=== PATIENT | female | born 1985 | race Caucasian/White ===

== ENCOUNTER 2016-11-09 10:13 | Emergency (ER) | payer OTHER ==
[~2016-11-09] VITALS: Ht 152.4 cm; Wt 79.4 kg
[2016-11-09] MEDS ORDERED: prenatal PO (10:26)
[2016-11-09] MEDS ORDERED: diphenhydrAMINE INJ 50MG/ML VIAL (J1200) IV STA (11:25)
[2016-11-09] MEDS ORDERED: METOCLOPRAMIDE INJ 10MG/2ML VIAL (J2765) IV ONE (11:30)
[2016-11-09] MEDS ORDERED: NS 1,000 ML IV ONE (11:30)
[2016-11-09] MEDS ORDERED: METOCLOPRAMIDE 10 MG TAB PO ONE (12:45)
[2016-11-09] MEDS ORDERED: diphenhydrAMINE 25 MG CAP PO ONE (12:45)
--- NOTE | 2016-11-09 12:58 | REP ---
Emergency first trimester OB sonography: History: Vaginal bleeding. Findings: Transabdominal scanning confirms the presence of a viable single intrauterine gestation in a free-floating lie. The crown-rump length of the embryonic pole is 6.8 cm. This corresponds with a gestational age estimate of 13 weeks 0 days. heart rate is recorded at 165 beats per minute. No subchorionic hemorrhage is seen. No extrauterine abnormalities observed. The placenta is posterior with partial placenta previa at this juncture. Closed cervical length is 3.9 cm viewed transabdominally. Impression: Viable single intrauterine gestation at 13 weeks 0 days by crown-rump length. SHAY by sonography May 17, 2017. Partial placenta previa noted at this juncture. No subchorionic hemorrhage seen. Closed cervical length 3.9 cm. Signed by Abimael Pittman MD 11/09/2016 12:58 P
[2016-11-09 13:05] LABS: BASO % 0.2 % (0.0-1.0); EOS # 0.2 K/mm3 (0.0-0.50); EOS % 2.1 % (0.0-3.0); LARGE UNSTAINED CELL # 0.1 K/mm3 (0.0-0.4); LARGE UNSTAINED CELL % 1.5 % (0.0-4.0); LYMPH # 1.9 K/mm3 (1.5-4.5); LYMPH % 24.4 % (24.0-44.0); MEAN CORPUSCULAR HEMOGLOBIN 31.8 pg (27.0-33.0); MEAN CORPUSCULAR HGB CONC 34.2 g/dl (32.0-36.5); MEAN CORPUSCULAR VOLUME 93.2 fl (80.0-96.0); MONO # 0.2 K/mm3 (0.0-0.8); MONO % 3.1 % (0.0-5.0); NEUTROPHILS # 4.9 K/mm3 (1.8-7.7); NEUTROPHILS % 68.7 % (36.0-66.0); PLATELET COUNT, AUTOMATED 229 k/mm3 (150-450); RED CELL DISTRIBUTION WIDTH 13.3 % (11.5-14.5); WHITE BLOOD COUNT 7.2 K/mm3 (4.0-10.0)
[2016-11-09 13:52] LABS: ANION GAP 9 MEQ/L (8-16); BLOOD UREA NITROGEN 7 MG/DL (7-18); CALCIUM LEVEL 9.2 MG/DL (8.5-10.1); CARBON DIOXIDE LEVEL 23 MEQ/L (21-32); CHLORIDE LEVEL 105 MEQ/L (98-107); CREATININE FOR GFR 0.38 MG/DL (0.55-1.02); GLOMERULAR FILTRATION RATE > 60.0 (>60); GLUCOSE, FASTING 80 MG/DL (70-105); POTASSIUM SERUM 3.6 MEQ/L (3.5-5.1); SODIUM LEVEL 137 MEQ/L (136-145)
[2016-11-09] MEDS ORDERED: ZOFR4TAB3 PO (14:08)
[2016-11-09 14:25] VITALS: BP 115/58
[2016-11-09] MEDS ORDERED: ACETAMINOPHEN TAB 650MG DOSE (2X325MG) As Ordered ONE (14:28)
[2016-11-09] MEDS ORDERED: ACETAMINOPHEN TAB 650MG DOSE (2X325MG) PO ONE (14:30)
== END 2016-11-09 14:36 | disposition home or self-care (01) ==
LOC: M ED 10:13
DX: O44.01 Complete placenta previa NOS or without hemorrhage, first trimester (principal); O21.9 Vomiting of pregnancy, unspecified; O99.211 Obesity complicating pregnancy, first trimester; Z90.49 Acquired absence of other specified parts of digestive tract; Z79.899 Other long term (current) drug therapy; Z88.0 Allergy status to penicillin; Z88.8 Allergy status to other drugs, medicaments and biological substances; Z3A.13 13 weeks gestation of pregnancy

== ENCOUNTER 2016-11-16 06:50 | Emergency (ER) | payer OTHER ==
[~2016-11-16 06:50] MED LIST: ZOFR4TAB3 PO; prenatal PO
[2016-11-16] MEDS ORDERED: UNIS25TA2 PO (06:57)
[2016-11-16 08:35] VITALS: BP 119/79
--- NOTE | 2016-11-17 07:23 | REP ---
First trimester obstetric ultrasound, emergency room request for vaginal bleeding: Comparison is 11/09/2016. There is a single intrauterine gestation, as previously. position is variable. There is movement and cardiac activity. The heart rate is 162 beats per minute. The placenta is posterior and extends into the lower uterine segment and is at least a marginal previa or possibly a partial previa as previously. There is no subchorionic hematoma. Maternal adnexa and cul-de-sac are unremarkable. By today's measurements the gestational age is 14 weeks 4 days with an SHAY of 05/13/2017. By the prior ultrasound the gestational age is 13 weeks 2 days and by LMP 13 weeks 2 days. weight is 100 grams (0 pounds, 3 ounces). This is greater than 97th percentile for 13 weeks 2 days. Impression: Posterior placenta extending into the lower uterine segment. This is at least a marginal previa possibly a partial previa. This is similar to the prior study. The patient declined endovaginal imaging. I note there was no endovaginal ultrasound on the prior study. Because of the low lying placenta and possible partial previa, I recommend the patient have endovaginal Doppler ultrasound to evaluate for vasa previa. Signed by Ganesh Khan MD 11/16/2016 08:13 A
--- NOTE | 2016-11-17 15:07 | ED PDOC ---
Post-Departure Follow-Up radiology report faxed to Isabell Bain Sarah MD Nov 17, 2016 15:07
== END 2016-11-16 08:36 | disposition home or self-care (01) ==
LOC: M ED 06:50
DX: O20.0 Threatened abortion (principal); Z3A.14 14 weeks gestation of pregnancy; O99.212 Obesity complicating pregnancy, second trimester; O99.342 Other mental disorders complicating pregnancy, second trimester; Z87.59 Personal history of other complications of pregnancy, childbirth and the puerperium; Z88.8 Allergy status to other drugs, medicaments and biological substances; Z88.0 Allergy status to penicillin; Z88.1 Allergy status to other antibiotic agents

== ENCOUNTER 2016-12-13 15:12 | Emergency (ER) | payer OTHER ==
[~2016-12-13] VITALS: Ht 152.4 cm; Wt 78.8 kg
[~2016-12-13 15:12] MED LIST changes: +UNIS25TA2 PO
[2016-12-13] MEDS ORDERED: VITA50TA49 PO (15:19)
[2016-12-13] MEDS ORDERED: FOLI1TAB4 PO (15:19)
[2016-12-13] MEDS ORDERED: METOCLOPRAMIDE INJ 10MG/2ML VIAL (J2765) IV ONE (17:15)
[2016-12-13] MEDS ORDERED: NS 1,000 ML IV ONE (17:45)
[2016-12-13] MEDS ORDERED: ACETAMINOPHEN 325 MG TAB PO ONE (18:30)
[2016-12-13 19:35] VITALS: BP 121/63
== END 2016-12-13 19:41 | disposition home or self-care (01) ==
LOC: M ED 15:12
DX: G44.209 Tension-type headache, unspecified, not intractable (principal); Z90.49 Acquired absence of other specified parts of digestive tract; Z79.899 Other long term (current) drug therapy; Z88.0 Allergy status to penicillin; Z88.1 Allergy status to other antibiotic agents; Z88.8 Allergy status to other drugs, medicaments and biological substances; Z3A.18 18 weeks gestation of pregnancy
CPT/HCPCS: 81001; 96361; 96374; 99283; J2765

== ENCOUNTER 2017-03-30 10:31 | Outpatient (CLI) | payer OTHER ==
[~2017-03-30] VITALS: Ht 152.4 cm; Wt 81.8 kg
[2017-03-30] VITALS (10 sets, daily range): BP systolic 119–164; BP diastolic 58–78
[~2017-03-30 10:31] MED LIST changes: +FOLI1TAB4 PO; +VITA50TA49 PO
[2017-03-30] MEDS ORDERED: TUMS500C PO (11:13)
[2017-03-30] MEDS ORDERED: MAGN1TAB25 PO (11:13)
[2017-03-30] MEDS ORDERED: ZANTTAB PO (11:13)
[2017-03-30] MEDS ORDERED: BENA25TA10 PO (11:13)
[2017-03-30] MEDS ORDERED: VITA50TA43 PO (11:13)
[2017-03-30] MEDS ORDERED: ACET50TA PO (11:13)
[2017-03-30] MEDS ORDERED: ASPI81TA85 PO (11:13)
[2017-03-30 13:13] LABS: MEAN CORPUSCULAR HEMOGLOBIN 31.9 pg (27.0-33.0); MEAN CORPUSCULAR HGB CONC 33.5 g/dl (32.0-36.5); MEAN CORPUSCULAR VOLUME 95.1 fl (80.0-96.0); PLATELET COUNT, AUTOMATED 213 10^3/uL (150-450); WHITE BLOOD COUNT 10.3 10^3/uL (4.0-10.0)
[2017-03-30 13:26] LABS: INR 0.91
[2017-03-30 13:31] LABS: ALT/SGPT 94 U/L (12-78); AST/SGOT 39 U/L (7-37); BILIRUBIN,TOTAL 0.3 MG/DL (0.2-1.0); CREATININE FOR GFR 0.35 MG/DL (0.55-1.02); GLOMERULAR FILTRATION RATE > 60.0 (>60); URIC ACID 2.8 MG/DL (2.6-6.0)
[2017-03-30] MEDS ORDERED: MAALOX 30 ML SUSP *UDC PO PRN (13:45)
--- NOTE | 2017-03-30 16:21 | REP ---
Clinical: HELLP syndrome. Technique: Carreon scale ultrasound examination using curved array transducer. Findings: Liver demonstrates mild hepatomegaly without focal hepatic lesion. Visualized portions of the pancreas are unremarkable but limited due to interposed bowel gas. The patient is status post cholecystectomy and there is no biliary ductal dilatation. Common bile duct measures 3.8 mm diameter. The right kidney demonstrates mild hydronephrosis and measures 13.6 x 6.2 x 7.0 cm. No ascites. Intrauterine in cephalic presentation (FHR= 157bpm). Impression: Mild hepatomegaly. Mild hydronephrosis. Signed by Parker Lugo MD 03/30/2017 04:12 P
--- NOTE | 2017-03-31 03:00 | HPE ---
DATE OF ADMISSION: 03/30/2017 This lady is a 31-year-old 4, para 2, 1, last menstrual period (LMP) 08/09/2016, estimated date of confinement (EDC) 05/17/2017. She comes in for evaluation at 33 weeks 1 day with a history of some vaginal bleeding that filled a pad. No pain. She had a history of abdominal itchiness with no rash, which generated liver enzyme evaluation at the clinic yesterday. The laboratory evaluation yesterday showed the alkaline phosphatase at 122 which was normal, alanine aminotransferase of 121 which is elevated, AST at 67 which is elevated. Total bilirubin was normal and protein was 5.9 which was low. Her only symptomatology she says is right upper quadrant tenderness. She has had a previous cholecystectomy with significant adhesions, but she had a previous right upper quadrant pain when she had her history of eclampsia at a previous . Her risk factors are that she had a history of pre-eclampsia and eclampsia with seizures. She is a GDMA1, diet controlled, monitoring own blood sugars, seem to be normal. Her body mass index (BMI) is 34.1. She has medullary sponge kidney disease with proteinuria. She has a history of PPD, and was on Zoloft. She has had two previous sections and it is an IVF . On examination today, she does not appear to be in any distress. She has a category one strip. She has no evidence of bleeding. No evidence of vaginal loss. No evidence of uterine tenderness or irritability. There are good accelerations, no decelerations noted. Moderate variability 6-25 beats per minute. Her vital signs are throughout her stay her blood pressure is 124/75, respirations 18, pulse 105 and temperature 99.1. She had one episode of an elevated blood pressure which was 164/62 and this was the automated cuff, however. With the digital cuff, it seemed to be normal. The rest of the examination is unremarkable. She is normocephalic, atraumatic. Neck full range of motions. Pupils are equal and reactive to light. Distal pulses symmetric. No evidence of deep venous thrombosis (DVT), pulmonary embolus (PE) or superficial phlebitis. She has brisk reflexes bilaterally lower extremities. Upper extremities are normal. Palpation in the right upper quadrant radiates around to the back with significant deep palpation. Lungs are clear bilaterally to bases. No wheezes or rhonchi. Uterus is nontender. Four quadrant bowel sounds are noted. Incisional site is clean and dry and nontender. No rashes, lesions or pruritus. We could not demonstrate any issue with a rash and she said her pruritus was better. She has no arthralgia or myalgia. No complaints of cough, wheezes, shortness of breath or dyspnea on exertion. No chest pain. She is not bleeding. No headache. Neurologically complete. No deficits noted. No incontinency, urgency or frequency. No nausea, vomiting, diarrhea or constipation. As far as her diabetic issues, she is a GDMA1 on diet using monitoring strips, appeared to be normal. Her gynecologic history is unremarkable. Surgical history is two sections, one because of eclampsia and the other one was a trial of labor after section (TOLAC) which she failed to progress and ended up with a section. Family history is noncontributory. She does not smoke, drink, abuse drugs. 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 The evaluation on this patient was basically on threefold. One is is she pre-eclamptic, is she eclamptic or does she have hemolysis, elevated liver enzymes, and low platelets (HELLP) syndrome. We reviewed her complete blood count (CBC). Her hemoglobin 11.1, hematocrit 33.1 and platelets were 213. Her chemistry showed that her uric acid was 2.8 which is normal. Her ALT was 94, AST was 35, lower than her original one done yesterday. LDH was 167. Her PT/INR and PTT were within normal limits and her fibrinogen was elevated, but that is normal in for 875. Her protein creatinine ratio was 0.38, suggested a 24-hour urine which she was in the process of doing and her total protein was 497.2. We have no evaluation of her previous protein, although she has medullary sponge kidney. She had a liver ultrasound which showed minimal dilatation. No evidence of ductal dilatation. No evidence of gallbladder or stone. No evidence of hepatic lesion. Therefore our plan of management of this lady is that although she does not fulfill the criteria for pre-eclampsia or eclampsia or for HELLP syndrome, we are still consciously monitoring her for all three. We explained to her regarding kick chart, premature rupture of membranes, labor or vaginal bleeding, although she did not call us regarding her previous vaginal bleeding. We also counseled regarding a headache, right upper quadrant pain, spots before her eyes, decreased urinary output or seizure-like activity. 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 The rest of the plan of management is to have her come back in 48 hours to repeat the NST, repeat her blood work and evaluate her reflexes and see if there is necessity for imminent delivery at 33 and 5 weeks of gestation. The patient was counseled to call us if any symptomatology occurs and the patient was discharged undelivered.
== END 2017-03-30 16:52 | disposition home or self-care (01) ==
LOC: M LDO 10:31
PROVIDERS: ATTEND Obstetrics & Gynecology
DX: O26.853 Spotting complicating pregnancy, third trimester (principal); O99.89 Other specified diseases and conditions complicating pregnancy, childbirth and the puerperium; R16.0 Hepatomegaly, not elsewhere classified; N13.30 Unspecified hydronephrosis; R10.11 Right upper quadrant pain; O35.2XX1 Maternal care for (suspected) hereditary disease in fetus, fetus 1; O09.813 Supervision of pregnancy resulting from assisted reproductive technology, third trimester; Z3A.33 33 weeks gestation of pregnancy

== ENCOUNTER 2017-04-02 09:48 | Outpatient (CLI) | payer OTHER ==
[~2017-04-02] VITALS: Ht 152.4 cm; Wt 83.1 kg
[~2017-04-02 09:48] MED LIST changes: +ACET50TA PO; +ASPI81TA85 PO; +BENA25TA10 PO; +MAGN1TAB25 PO; +TUMS500C PO; +VITA50TA43 PO; +ZANTTAB PO
[2017-04-02 10:10] VITALS: BP 123/78
[2017-04-02 10:32] LABS: MEAN CORPUSCULAR HEMOGLOBIN 32.4 pg (27.0-33.0); MEAN CORPUSCULAR VOLUME 95.1 fl (80.0-96.0); PLATELET COUNT, AUTOMATED 206 10^3/uL (150-450); RED CELL DISTRIBUTION WIDTH 13.9 % (11.5-14.5); WHITE BLOOD COUNT 9.3 10^3/uL (4.0-10.0)
[2017-04-02 10:44] LABS: INR 0.95
[2017-04-02 10:55] LABS: ALBUMIN 2.1 GM/DL (3.2-5.2); ALBUMIN/GLOBULIN RATIO 0.49 (1.00-1.93); ALKALINE PHOSPHATASE 123 U/L (45-117); ALT/SGPT 58 U/L (12-78); AST/SGOT 25 U/L (7-37); BILIRUBIN,DIRECT < 0.1 MG/DL (0.0-0.2); BILIRUBIN,TOTAL 0.2 MG/DL (0.2-1.0); CREATININE FOR GFR 0.42 MG/DL (0.55-1.02); GLOMERULAR FILTRATION RATE > 60.0 (>60); TOTAL PROTEIN 6.4 GM/DL (6.4-8.2); URIC ACID 2.1 MG/DL (2.6-6.0)
[2017-04-02 11:07] VITALS: BP 118/69
[2017-04-02 11:33] VITALS: BP 131/77
[2017-04-02 12:33] VITALS: BP 109/68
--- NOTE | 2017-04-02 20:48 | HPE ---
DATE OF ADMISSION: 04/02/2017 This patient is a 31-year-old 4, para 2, abortia 1, LMP was 08/09/2016 but there is another area that says it was 08/15/2016, and her EDC has been consistently May 17, 2017. However, the patient insists that her IVF dating is different. Based on her EDC through the many ultrasounds where taking is May 17, 2017 and today she is 33 weeks and 4 days. She also had an ultrasound that is on 11/09/2016 that put her at 13 weeks which gives her an EDC of May 17, 2017. Because of the conflicting ultrasound reports, we are going to continue with the EDC of May 17, 2017. She originally came with one episode of vaginal bleeding which filled a pad. No pain on 03/30/2017 and she had on March 29 at itchiness over the abdominal striae area, which triggered liver enzymes. LABORATORY: Her risk factors is she has had a history of pre E and eclampsia. She has a GDMA1, diet controlled monitoring her own blood sugars. She is a BMI of 34.1. She has medullary sponge kidney disease with proteinuria. She has a history of depression and Zoloft, and she had two previous sections and this is an IVF . Today she is feeling well only issue was her headache which is 4 out of 10 which is similar to what she had before and over the last 24-48 hours. She does not complain of any visual disturbances, spots in her eyes, right upper quadrant pain, decreased urinary output, increased swelling or irritation or agitation. In looking in reviewing her lab work on 03/29/2017 done at another facility, her AST was 67 on March 29, 2017, on 03/30/2017 it was 39, and on 04/02/2017 it was 25. Her aminotransferase on 03/29/2017 was 121, on March 30 it was 94, and on April 02 it was 58. Her bilirubin on March 29 was 0.20 and that has been consistent on March 30 and April 02. Her total protein on March 29 was 5.9. Her uric acid 2.8 on March 30 2.8 and April 02 2.1. Her total protein on March 30 was 497.2 ,but her protein creatinine ratio was 0.38 on March 30. Her protein creatinine ratio elevated to 0.55. Her hemoglobin/hematocrit and platelet counts remained within normal variant range and there has been no wide swings in her platelets, the lowest being 206. Her liver ultrasound was normal. Her ultrasound showed an AMY 13.88, RI index of 0.64, AST ratio of 2.8. Cervix 4.0, large for gestational age at 34 weeks with a estimated weight of 26 59 grams in vertex presenting. On physical examination she is in no acute distress. Symphysis fundus height is 34, four quadrant bowel sounds are noted. Category one strip with no contractions, good accelerations moderate variability of 6-25 beats per minute. Her blood pressure is 109/68, pulse 104, temperature is 96.8 and respirations are 18. She is normocephalic, atraumatic. Neck: Full range of motions. Pupils equal and reactive to light. Her thyroid is midline. No JVD, bruits. Lungs are clear bilaterally to the bases. She has four quadrant bowel sounds. No evidence of gross edema. Slight ankle edema. Right upper quadrant is unremarkable. She has no rashes, lesions or pruritus. No arthralgia or myalgia. No complaints of cough, wheezes short since of breath or dyspnea on exertion. No chest pain. Not bleeding. Neuro complete. No incontinence, urgency or frequency. No nausea, vomiting, diarrhea or constipation. She is monitoring her blood sugars, which are all within normal range and she is diet controlled. She does not smoke, drink, abuse drugs. 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 She has multiple allergies to antibiotics. At the present time it is not an issue as she is not booked for elective repeat and that yardstick will be moved. The triad of hemolysis, elevated liver enzymes and low platelets which is the HELLP is associated with increased risk of maternal mortality and severe morbidity. However, in reviewing this lady and factors which increased the risk, her AST has to be greater than 316, her ALT greater than 217, her total bilirubin greater than 2.0 and her LDH greater than 1290. Her BUN is greater 244, and her platelet counts less than 50,000. At the present time she does not meet the criteria for HELLP syndrome or for preeclampsia or eclampsia. However, progression can be and potentially be sudden and catastrophic and this was emphasized to the patient when we did our precautions, and she has had eclamptic seizures before, so she knows the signs and symptoms. We evaluated her liver which appeared to be normal and therefore there was some low risk of rupture of the liver. Her lungs are clear which is a low risk of pulmonary edema and at the present time we are doing expected management hopefully getting this lady's at 37 weeks at which time an elective repeat section will be entertained. The patient and understand the risks and benefits, complications and expressed understanding of when to call the physician. We spent almost 2 hours in assessment of this patient with multiple questions answered and satisfied and the patient was discharged to followup in 48 hours for reevaluation.
[2017-04-03] MEDS ORDERED: MYLA1SUS PO (16:54)
== END 2017-04-02 12:35 | disposition home or self-care (01) ==
LOC: M LDO 09:48
PROVIDERS: ATTEND Obstetrics & Gynecology
DX: O99.89 Other specified diseases and conditions complicating pregnancy, childbirth and the puerperium (principal); R51 Headache; O26.893 Other specified pregnancy related conditions, third trimester; R16.0 Hepatomegaly, not elsewhere classified; O26.833 Pregnancy related renal disease, third trimester; N13.2 Hydronephrosis with renal and ureteral calculous obstruction; Z87.59 Personal history of other complications of pregnancy, childbirth and the puerperium; O09.813 Supervision of pregnancy resulting from assisted reproductive technology, third trimester; Z3A.33 33 weeks gestation of pregnancy

== ENCOUNTER 2017-04-03 15:42 | Outpatient (CLI) | payer OTHER ==
[~2017-04-03] VITALS: Ht 152.4 cm; Wt 82.1 kg
[2017-04-03] VITALS (7 sets, daily range): BP systolic 99–122; BP diastolic 56–71
[2017-04-03 16:28] LABS: MEAN CORPUSCULAR HGB CONC 33.8 g/dl (32.0-36.5); MEAN CORPUSCULAR VOLUME 94.6 fl (80.0-96.0); PLATELET COUNT, AUTOMATED 222 10^3/uL (150-450); RED CELL DISTRIBUTION WIDTH 13.8 % (11.5-14.5); WHITE BLOOD COUNT 10.6 10^3/uL (4.0-10.0)
[2017-04-03] MEDS ORDERED: PROMETHAZINE 25 MG TAB PO ONE (16:45)
[2017-04-03] MEDS ORDERED: FIORICET TAB PO ONE (16:45)
[2017-04-03 16:47] LABS: INR 1.02
[2017-04-03] MEDS ORDERED: MYLA1SUS PO (16:54)
--- NOTE | 2017-04-03 17:10 | IPNPDOC ---
Text Note Date of Service The patient was seen on 04/03/17. NOTE [id number] @ 1647 31 yo presents to L&D via wheelchair @ 34+1 by IVF dating with an SHAY- [id number] with c/o RENDON rated as a 6/10 and n/v. Denies DFM, LOF, CTX and VB. Reports a hx of migraines with n/v. She just came from [place] where she had her younger child d/t n/v/d(diagnosed with a virus). States that the babe is moving very aggressively today which is not the normal. She would like her IV in her left arm. Stated "it will be easier to hold my baby with the IV in the left arm". Reports concerns that she has eclampsia again. S: resting in bed in high-fowlers. States she thinks she will be able to sleep if the lights are dimmed. O: VS- BP-108/58, HR-105, T-99.8, R-20 FHR-140, moderate variability, + accels, no decles CTX- none, Resting tone palpated as soft +1 non-pitting bilat LE edema, +1 DTRs, no clonus PROBLEM LIST: 1. Hx C-S x 2- desires RLTCS 2. hx eclampsia 3. GDMA1-likely pre-existing 4. medullary sponge kidney-proteinuria 5. hx PTB @ 36 wks d/t eclampsia 6. hx PPD, depression and anxiety in this -prozac and buspar @ 26 wks 7. palpitations-cardioloy no recommendations 8. hx child with spina bifida-extra folate A: 31 yo @ 34+1 with reactive NST. No elevated BPs noted. No CTXs. Nausea resolved. RENDON 2/10 P: Discharge home with strict return precautions. PTL and pre-e precautions reviewed. f/u in clinic on Sunday or sooner if needed for DFM, CTX, LOF, VB, RENDON , n/v, visual changes and RUQ pain VS,Fishbone, I+O VS, Fishbone, I+O Laboratory Tests 04/03/17 16:16 Red Blood Count 3.69 L, Mean Corpuscular Volume 94.6, Mean Corpuscular Hemoglobin 32.0, Mean Corpuscular Hemoglobin Concent 33.8, Red Cell Distribution Width 13.8 AJ PRICE CNM Apr 03, 2017 17:10
[2017-04-03 17:46] LABS: ALBUMIN 2.4 GM/DL (3.2-5.2); ALBUMIN/GLOBULIN RATIO 0.67 (1.00-1.93); ALKALINE PHOSPHATASE 140 U/L (45-117); ALT/SGPT 52 U/L (12-78); ANION GAP 13 MEQ/L (8-16); AST/SGOT 22 U/L (7-37); BILIRUBIN,TOTAL 0.2 MG/DL (0.2-1.0); BLOOD UREA NITROGEN 6 MG/DL (7-18); CALCIUM LEVEL 8.9 MG/DL (8.5-10.1); CARBON DIOXIDE LEVEL 19 MEQ/L (21-32); CHLORIDE LEVEL 107 MEQ/L (98-107); CREATININE FOR GFR 0.36 MG/DL (0.55-1.02); GLOMERULAR FILTRATION RATE > 60.0 (>60); GLUCOSE, FASTING 109 MG/DL (70-105); POTASSIUM SERUM 3.8 MEQ/L (3.5-5.1); SODIUM LEVEL 139 MEQ/L (136-145); URIC ACID 2.3 MG/DL (2.6-6.0)
== END 2017-04-03 18:20 | disposition home or self-care (01) ==
LOC: M LDO 15:42
PROVIDERS: ATTEND Midwife
DX: O99.89 Other specified diseases and conditions complicating pregnancy, childbirth and the puerperium (principal); R51 Headache; Z87.59 Personal history of other complications of pregnancy, childbirth and the puerperium; Z3A.34 34 weeks gestation of pregnancy

== ENCOUNTER 2017-04-06 09:58 | Outpatient (CLI) | payer OTHER ==
[~2017-04-06 09:58] MED LIST changes: +MYLA1SUS PO
[2017-04-06 10:12] VITALS: BP 117/69
[2017-04-06 11:30] LABS: MEAN CORPUSCULAR HEMOGLOBIN 31.5 pg (27.0-33.0); MEAN CORPUSCULAR HGB CONC 33.1 g/dl (32.0-36.5); MEAN CORPUSCULAR VOLUME 95.2 fl (80.0-96.0); PLATELET COUNT, AUTOMATED 211 10^3/uL (150-450); RED CELL DISTRIBUTION WIDTH 13.5 % (11.5-14.5); WHITE BLOOD COUNT 9.7 10^3/uL (4.0-10.0)
[2017-04-06 11:55] LABS: ALBUMIN 2.3 GM/DL (3.2-5.2); ALBUMIN/GLOBULIN RATIO 0.66 (1.00-1.93); ALKALINE PHOSPHATASE 122 U/L (45-117); ALT/SGPT 34 U/L (12-78); ANION GAP 12 MEQ/L (8-16); AST/SGOT 17 U/L (7-37); BILIRUBIN,TOTAL 0.2 MG/DL (0.2-1.0); BLOOD UREA NITROGEN 7 MG/DL (7-18); CALCIUM LEVEL 8.5 MG/DL (8.5-10.1); CARBON DIOXIDE LEVEL 21 MEQ/L (21-32); CHLORIDE LEVEL 105 MEQ/L (98-107); CREATININE FOR GFR 0.34 MG/DL (0.55-1.02); GLOMERULAR FILTRATION RATE > 60.0 (>60); GLUCOSE, FASTING 127 MG/DL (70-105); POTASSIUM SERUM 3.7 MEQ/L (3.5-5.1); SODIUM LEVEL 138 MEQ/L (136-145); TOTAL PROTEIN 5.8 GM/DL (6.4-8.2)
--- NOTE | 2017-04-06 12:44 | IPNPDOC ---
Text Note Date of Service The patient was seen on 04/06/17. NOTE Yesenia is a 31yo with SIUP at 34wk gestation presenting to L&D for RUQ pain. She was previously seen to have isolated elevated LFTs and was given strict return precautions which she followed. She notes she took a dose of tylenol for the pain with some improvement. No obstetric concerns- rare ctx, no LOF, no VB, good movement. History significant for: 1)2 prior sections 2)hx of eclampsia with one of her pregnancies at 36wk delivered via 3)Medullary sponge kidney with associated proteinuria 4)Obesity 5)GDM 6)Palpitations s/p cardiology workup 7)Depression/anxiety on buspar and prozac 8)child with spina bifida 9)current via IVF 10)allergy to PCN (anaphylaxis) Vitals wnl- normotensive General: WDWN, resting comfortably in bed Abdomen: soft, ND, gravid, no pain with manipulation of uterus, no rebound/ guarding, NTTP SCE (chaperoned by RN): 1/thick/high Cat I FHRT, +accels, -decels, mod yen [place]: rare ctx Labs: CMP: creatinine 0.34, AST 17, ALT 34 CBC: H/H 11.2/33.8, plt 211 Assessment: Yesenia is a 31yo with SIUP at 34wk with above noted problem list with now resolved LFTs and NO evidence of pre-eclampsia or liver pathology. RUQ pain possibly related to ligament pain vs pain with movement since patient endorsed that her "baby is hurting her" whenever the baby moves. Reassuring status. No evidence of PTL. Plan: -confirmed with Dr. Carr to keep today's 1400 appt to schedule RLTCS -continue to hydrate well -return precautions discussed MD Karlos Cruz VS,Micheal, I+O VS, Micheal, I+O Laboratory Tests 04/06/17 11:17 Red Blood Count 3.55 L, Mean Corpuscular Volume 95.2, Mean Corpuscular Hemoglobin 31.5, Mean Corpuscular Hemoglobin Concent 33.1, Red Cell Distribution Width 13.5, Calcium Level 8.5, Aspartate Amino Transf (AST/SGOT) 17 , Alanine Aminotransferase (ALT/SGPT) 34, Alkaline Phosphatase 122 H, Total Bilirubin 0.2, Total Protein 5.8 L, Albumin 2.3 L Tatum Bella MD Apr 06, 2017 12:44
== END 2017-04-06 12:37 | disposition home or self-care (01) ==
LOC: M LDO 09:58
PROVIDERS: ATTEND Obstetrics & Gynecology
DX: O99.89 Other specified diseases and conditions complicating pregnancy, childbirth and the puerperium (principal); R10.11 Right upper quadrant pain; O09.93 Supervision of high risk pregnancy, unspecified, third trimester; O09.819 Supervision of pregnancy resulting from assisted reproductive technology, unspecified trimester; O99.343 Other mental disorders complicating pregnancy, third trimester; F32.9 Major depressive disorder, single episode, unspecified; F41.9 Anxiety disorder, unspecified; O26.833 Pregnancy related renal disease, third trimester; Z82.79 Family history of other congenital malformations, deformations and chromosomal abnormalities; Z3A.34 34 weeks gestation of pregnancy

== ENCOUNTER 2017-04-24 13:30 | Inpatient (IN) | payer OTHER ==
[2017-04-24 14:57] LABS: BASO % 0.2 % (0.0-1.0); EOS # 0.1 10^3/uL (0.0-0.50); EOS % 1.5 % (0.0-3.0); IMMATURE GRANULOCYTE # 0.1 10^3/uL (0-0); IMMATURE GRANULOCYTE % 1.1 % (0-0); LYMPH # 1.5 10^3/uL (1.5-4.5); LYMPH % 17.7 % (24.0-44.0); MEAN CORPUSCULAR HEMOGLOBIN 30.4 pg (27.0-33.0); MEAN CORPUSCULAR HGB CONC 33.3 g/dl (32.0-36.5); MEAN CORPUSCULAR VOLUME 91.2 fl (80.0-96.0); MONO # 0.6 10^3/uL (0.0-0.8); MONO % 6.8 % (0.0-5.0); NEUTROPHILS # 6.2 10^3/uL (1.8-7.7); NEUTROPHILS % 72.7 % (36.0-66.0); PLATELET COUNT, AUTOMATED 181 10^3/uL (150-450); RED CELL DISTRIBUTION WIDTH 13.2 % (11.5-14.5); WHITE BLOOD COUNT 8.5 10^3/uL (4.0-10.0)
[2017-04-24 15:24] LABS: ALBUMIN 2.2 GM/DL (3.2-5.2); ALBUMIN/GLOBULIN RATIO 0.63 (1.00-1.93); ALKALINE PHOSPHATASE 135 U/L (45-117); ALT/SGPT 22 U/L (12-78); ANION GAP 9 MEQ/L (8-16); AST/SGOT 20 U/L (7-37); BILIRUBIN,DIRECT < 0.1 MG/DL (0.0-0.2); BILIRUBIN,TOTAL 0.2 MG/DL (0.2-1.0); BLOOD UREA NITROGEN 7 MG/DL (7-18); CALCIUM LEVEL 8.1 MG/DL (8.5-10.1); CARBON DIOXIDE LEVEL 22 MEQ/L (21-32); CHLORIDE LEVEL 107 MEQ/L (98-107); CREATININE FOR GFR 0.36 MG/DL (0.55-1.02); GLOMERULAR FILTRATION RATE > 60.0 (>60); GLUCOSE, FASTING 116 MG/DL (70-105); POTASSIUM SERUM 4.1 MEQ/L (3.5-5.1); SODIUM LEVEL 138 MEQ/L (136-145); TOTAL PROTEIN 5.7 GM/DL (6.4-8.2); URIC ACID 2.8 MG/DL (2.6-6.0)
[2017-04-24] MEDS ORDERED: OXYTOCIN INJ 10 UNITS/ML VIAL (J2590) As Ordered ×3 (16:29→18:39)
[2017-04-24] MEDS ORDERED: MORPHINE PRES-FREE INJ 10 MG/10 ML VIAL (J2274) As Ordered (16:29)
[2017-04-24] MEDS: ACETAMINOPHEN 650 MG SUPP PR (17:00)
[2017-04-24] MEDS: BUPIVACAINE HCL 0.25% 10 ML VIAL XX (17:00)
[2017-04-24] MEDS: VANCOMYCIN HCL 1,000 MG, VIAL MATE ADAPTER 1 EACH in D5W 250 ML IV (17:10)
[2017-04-24] MEDS: LACTATED RINGER'S 1000 ML IV (17:10)
[2017-04-24] MEDS: BICITRA 30ML SOLN UDC PO (18:19)
[2017-04-24] MEDS ORDERED: ONDANSETRON 4MG/2ML VIAL (J2405) IV ×2 (18:31→20:00)
[2017-04-24] MEDS ORDERED: METOCLOPRAMIDE INJ 10MG/2ML VIAL (J2765) IV (18:31)
[2017-04-24] MEDS ORDERED: NALBUPHINE HCL 10 MG/ML AMP (J2300) IV ×3 (18:31→20:30)
[2017-04-24] MEDS ORDERED: NALOXONE INJ 0.4 MG/1 ML VIAL (J2310) IV ×2 (18:31)
[2017-04-24] MEDS ORDERED: ONDANSETRON 4MG/2ML VIAL (J2405) As Ordered (18:39)
[2017-04-24] MEDS ORDERED: KETOROLAC 60 MG/2 ML VIAL (J1885) As Ordered (19:05)
[2017-04-24] MEDS ORDERED: PHENYLephrine HCL 500 MCG/5 ML (100MCG/ML) SYRINGE (J2370) As Ordered (19:18)
[2017-04-24 19:21] LABS: CORD GAS ABE A 0.7; CORD GAS ABE V -1.1; CORD GAS HCO3 A 27.5 MEQ/L; CORD GAS HCO3 V 24.4 MEQ/L; CORD GAS O2 SAT V 81.5 %; CORD GAS PCO2 A 51.7 mmHg; CORD GAS PCO2 V 43.3 mmHg; CORD GAS PH A 7.344 UNITS; CORD GAS PH V 7.368 UNITS; CORD GAS PO2 A 29.2 mmHg; CORD GAS PO2 V 35.8 mmHg; CORD GAS SBC A 24.2 MEQ/L; CORD GAS SBC V 23.1 MEQ/L; CORD GAS TCO2 A 29.1 MEQ/L; CORD GAS TCO2 V 25.7 MEQ/L
[2017-04-24] MEDS ORDERED: fentaNYL 100 MCG/2 ML INJECTION (J3010) As Ordered (19:47)
[2017-04-24] MEDS ORDERED: OXYTOCIN DRIP 30 UNITS in APPROPRIATE DILUENT 1 EA IV (19:49)
[2017-04-24] MEDS ORDERED: DOCUSATE SODIUM 100 MG CAP PO (20:00)
[2017-04-24] MEDS ORDERED: ANUSOL HC CREAM 30GM TOP (20:00)
[2017-04-24] MEDS ORDERED: MEASLES,MUMPS,RUBELLA VACCINE INJ (MMR-II) (90707) SC (20:00)
[2017-04-24] MEDS ORDERED: fentaNYL 100 MCG/2 ML INJECTION (J3010) IV (20:00)
[2017-04-24] MEDS ORDERED: MOM 30ML SUSPENSION UDC PO (20:00)
[2017-04-24] MEDS ORDERED: MEPERIDINE INJ 25 MG/ML VIAL (J2175) IV (20:00)
[2017-04-24] MEDS: OXYTOCIN INJ 10 UNITS/ML VIAL (J2590) IV (20:00)
[2017-04-24] MEDS ORDERED: RHOGAM 300 MCG (1500 IU) INJ (J2790) IM (20:00)
[2017-04-24] MEDS ORDERED: METHYLERGONOVINE MALEATE 0.2 MG TAB PO (20:00)
[2017-04-24] MEDS ORDERED: MORPHINE 10 MG/ML 1ML VIAL As Ordered (20:39)
[2017-04-24] MEDS ORDERED: MORPHINE 2 MG/ML 1ML SYRINGE IV (20:45)
[2017-04-24] MEDS: LR 1,000 ML IV (20:56)
[2017-04-24] MEDS: busPIRone 5 MG TAB PO (21:00)
[2017-04-24 21:27] LABS: HBSAG L&D NEGATIVE (NEGATIVE)
[2017-04-24] MEDS: PERCOCET 5MG/325MG TAB PO (21:27)
[2017-04-24] MEDS: diphenhydrAMINE INJ 50MG/ML VIAL (J1200) IV (22:45)
[2017-04-25] MEDS: LR 1,000 ML IV ×3 (01:00→17:00)
[2017-04-25] MEDS: IBUPROFEN 800 MG TAB PO ×3 (02:11→17:56)
[2017-04-25 06:47] LABS: MEAN CORPUSCULAR HEMOGLOBIN 29.9 pg (27.0-33.0); MEAN CORPUSCULAR HGB CONC 32.8 g/dl (32.0-36.5); MEAN CORPUSCULAR VOLUME 91.2 fl (80.0-96.0); PLATELET COUNT, AUTOMATED 157 10^3/uL (150-450); RED CELL DISTRIBUTION WIDTH 13.3 % (11.5-14.5); WHITE BLOOD COUNT 12.2 10^3/uL (4.0-10.0)
[2017-04-25] MEDS: raNITIdine SYRUP 150 MG/10 ML UDC PO (07:50)
[2017-04-25] MEDS: PRENATAL VITAMINS CHEWABLE TABLET PO (07:50)
[2017-04-25] MEDS: MAGNESIUM OXIDE 400 MG TAB (MAG-OX) PO (07:51)
[2017-04-25] MEDS: FLUoxetine 20 MG CAP PO (07:51)
[2017-04-25] MEDS: busPIRone 5 MG TAB PO ×2 (07:51→21:24)
[2017-04-26] MEDS: IBUPROFEN 800 MG TAB PO ×2 (02:53→11:55)
[2017-04-26] MEDS: PERCOCET 5MG/325MG TAB PO ×4 (02:55→21:07)
[2017-04-26] MEDS: FLUoxetine 20 MG CAP PO (09:51)
[2017-04-26] MEDS: PRENATAL VITAMINS CHEWABLE TABLET PO (09:51)
[2017-04-26] MEDS: raNITIdine SYRUP 150 MG/10 ML UDC PO (09:51)
[2017-04-26] MEDS: MAGNESIUM OXIDE 400 MG TAB (MAG-OX) PO (09:51)
[2017-04-26] MEDS: busPIRone 5 MG TAB PO ×2 (09:51→20:58)
[2017-04-27] MEDS: PERCOCET 5MG/325MG TAB PO ×3 (01:36→09:47)
[2017-04-27] MEDS: busPIRone 5 MG TAB PO (08:47)
[2017-04-27] MEDS: MAGNESIUM OXIDE 400 MG TAB (MAG-OX) PO (08:47)
[2017-04-27] MEDS: raNITIdine SYRUP 150 MG/10 ML UDC PO (08:48)
[2017-04-27] MEDS: FLUoxetine 20 MG CAP PO (08:48)
[2017-04-27] MEDS: PRENATAL VITAMINS CHEWABLE TABLET PO (08:48)
== END 2017-04-27 12:45 | disposition home or self-care (01) | DRG 765 ==
LOC: M LDO 13:30 → M LDI 15:44 → M OBS 21:46
PROC: 10D00Z1 Extraction of Products of Conception, Low, Open Approach (ICD-10-PCS; principal; 2017-04-24)
DX: O14.94 Unspecified pre-eclampsia, complicating childbirth (principal); O40.3XX0 Polyhydramnios, third trimester, not applicable or unspecified; O24.420 Gestational diabetes mellitus in childbirth, diet controlled; O99.214 Obesity complicating childbirth; O34.211 Maternal care for low transverse scar from previous cesarean delivery; E66.9 Obesity, unspecified; O99.344 Other mental disorders complicating childbirth; F32.9 Major depressive disorder, single episode, unspecified; F41.9 Anxiety disorder, unspecified; Z3A.36 36 weeks gestation of pregnancy; Z37.0 Single live birth; Z68.34 Body mass index [BMI] 34.0-34.9, adult

== ENCOUNTER 2017-04-28 17:43 | Outpatient (CLI) | payer OTHER ==
[2017-04-28 18:10] LABS: BASO % 0.3 % (0.0-1.0); EOS # 0.3 10^3/uL (0.0-0.50); IMMATURE GRANULOCYTE # 0.1 10^3/uL (0-0); IMMATURE GRANULOCYTE % 0.9 % (0-0); LYMPH # 1.6 10^3/uL (1.5-4.5); LYMPH % 17.9 % (24.0-44.0); MEAN CORPUSCULAR HEMOGLOBIN 30.4 pg (27.0-33.0); MEAN CORPUSCULAR HGB CONC 33.1 g/dl (32.0-36.5); MEAN CORPUSCULAR VOLUME 91.6 fl (80.0-96.0); MONO # 0.6 10^3/uL (0.0-0.8); MONO % 6.3 % (0.0-5.0); NEUTROPHILS # 6.3 10^3/uL (1.8-7.7); NEUTROPHILS % 71.6 % (36.0-66.0); PLATELET COUNT, AUTOMATED 249 10^3/uL (150-450); RED CELL DISTRIBUTION WIDTH 13.6 % (11.5-14.5); WHITE BLOOD COUNT 8.8 10^3/uL (4.0-10.0)
== END 2017-04-28 18:54 | disposition home or self-care (01) ==
LOC: M LDO 17:43
DX: O99.89 Other specified diseases and conditions complicating pregnancy, childbirth and the puerperium (principal); R10.9 Unspecified abdominal pain; O99.53 Diseases of the respiratory system complicating the puerperium; O99.345 Other mental disorders complicating the puerperium; O99.215 Obesity complicating the puerperium; J00 Acute nasopharyngitis [common cold]; Z88.0 Allergy status to penicillin; Z88.8 Allergy status to other drugs, medicaments and biological substances
CPT/HCPCS: 85025

== ENCOUNTER → 2017-05-28 | Outpatient (CLI) | payer OTHER | LOC: M WUC 14:34 | DX: M25.551 Pain in right hip (principal) | CPT/HCPCS: 73502 ==

== ENCOUNTER 2017-10-21 18:13 | Emergency (ER) | payer OTHER ==
[2017-10-21] MEDS: NORCO 5/325MG TABLET (BULK FOR ED) PO (19:45)
== END 2017-10-21 21:18 | disposition home or self-care (01) ==
LOC: M ED 18:13
DX: S62.366A Nondisplaced fracture of neck of fifth metacarpal bone, right hand, initial encounter for closed fracture (principal); W22.8XXA Striking against or struck by other objects, initial encounter; Y92.009 Unspecified place in unspecified non-institutional (private) residence as the place of occurrence of the external cause; Z88.0 Allergy status to penicillin; Z88.8 Allergy status to other drugs, medicaments and biological substances
CPT/HCPCS: 73130

== ENCOUNTER 2018-06-24 10:17 | Day surgery (SDC) | payer OTHER ==
[~2018-06-24] VITALS: Ht 152.4 cm; Wt 80.3 kg
[~2018-06-24 10:17] MED LIST changes: -ACET50TA PO; +BUSP10TA PO; +BUSP5TA PO; +COLA100C5 PO; +FLUO20CA19 PO; +FOLI1TAB11 PO; -FOLI1TAB4 PO; +MAPA500T2 PO; +NORCOTAB PO; +NS 1,000 ML IV ONE; +OXYC1TAB23 PO; +PRENTAB9 PO; +PROZ20CA11 PO; -UNIS25TA2 PO; +UNIS25TA3 PO; +ZOFR4TAB14 PO; -ZOFR4TAB3 PO
[2018-06-24] MEDS ORDERED: PROPOFOL 200 MG/20 ML VIAL As Ordered ONE ×2 (11:04→13:20)
[2018-06-24] MEDS ORDERED: LIDOCAINE 2% INJ 100 MG/5 ML SDV (FOR ANES.) As Ordered ONE (11:05)
--- NOTE | 2018-06-24 13:20 | ROOR ---
Patient Name: Yesenia Thrasher Procedure Date: 06/24/2018 1:00 PM Date of : 1985 Age: 32 Room: [facility] Gender: Female Note Status: Finalized Procedure: Total Colonoscopy to Cecum Indications: Rectal bleeding Providers: Macario Baeza MD Referring MD: MATHIEU MURDOCK MD Requesting Provider: Medicines: Monitored Anesthesia Care Complications: No immediate complications. Procedure: Pre-Anesthesia Assessment: - The heart rate, respiratory rate, oxygen saturations, blood pressure, adequacy of pulmonary ventilation, and response to care were monitored throughout the procedure. The Colonoscope was introduced through the anus and advanced to the cecum, identified by appendiceal orifice and ileocecal valve. The colonoscopy was performed without difficulty. The patient tolerated the procedure well. The quality of the bowel preparation was excellent. Findings: The perianal and digital rectal examinations were normal. Non-bleeding internal hemorrhoids were found during retroflexion. The hemorrhoids were small and Grade I (internal hemorrhoids that do not prolapse). No other significant abnormalities were identified in a careful examination of the remainder of the colon. The exam was otherwise without abnormality on direct and retroflexion views. Impression: - Non-bleeding internal hemorrhoids. - The examination was otherwise normal on direct and retroflexion views. - No specimens collected. - The exam was otherwise normal to the cecum. Recommendation: - Patient has a contact number available for emergencies. The signs and symptoms of potential delayed complications were discussed with the patient. Return to normal activities tomorrow. Written discharge instructions were provided to the patient. - High fiber diet. - Discharge patient to home. - Continue present medications. - Repeat colonoscopy at age 49 for screening purposes. - Return to referring physician. - The findings and recommendations were discussed with the patient's family. Macario Baeza MD Macario Baeza MD 06/24/2018 1:20:17 PM This report has been signed electronically. Number of Addenda: 0 Note Initiated On: 06/24/2018 1:00 PM Estimated Blood Loss: Estimated blood loss: none.
[2018-06-24] MEDS ORDERED: ONDANSETRON 4MG/2ML VIAL (J2405) As Ordered ONE (13:41)
[2018-06-24 13:54] VITALS: BP 110/78
[2018-06-24] MEDS ORDERED: ONDANSETRON 4MG/2ML VIAL (J2405) IV ONE (14:00)
== END 2018-06-24 14:05 | disposition home or self-care (01) ==
LOC: M OPP 10:17
PROVIDERS: ATTEND Internal Medicine Gastroenterology
DX: K62.5 Hemorrhage of anus and rectum (principal); K64.0 First degree hemorrhoids; Z88.0 Allergy status to penicillin; Z88.1 Allergy status to other antibiotic agents; Z88.8 Allergy status to other drugs, medicaments and biological substances; Z79.899 Other long term (current) drug therapy

== ENCOUNTER → 2018-09-03 | Outpatient (CLI) | payer OTHER ==
[~2018-09-03] MED LIST changes: +HYDR-3715 PO; -MAGN1TAB25 PO; +MAGN1TAB26 PO; -NORCOTAB PO; -NS 1,000 ML IV ONE; -VITA50TA49 PO; +VITA50TA7 PO
--- NOTE | 2018-09-04 09:45 | REP ---
ULTRASOUND LEFT BREAST: Real-time sonographic evaluation of the left breast performed. Patient has had placement of a breast implant approximately 1 year ago. Recent nipple piercing has also been performed, recently removed. Reportedly there is a palpable abnormality in the left retroareolar region for 1 month which is painful and increasing in size. The left breast implant appears intact. At the palpable abnormality in the retroareolar region, there is a superficial elongated hypoechoic area just beneath the skin. It measures 1.4 x 0.4 x 1.9 cm. This most likely represents either phlegmonous inflammatory change or hematoma. IMPRESSION: ACR 3 probably benign. Elongated subcutaneous hypoechoic area in the region of the palpable lump near the left nipple measuring 1.4 x 0.4 x 1.9 cm. This most likely represents phlegmonous inflammatory change or hematoma related to recent nipple piercing. Recommend followup ultrasound of this area in 3-6 months. Electronically Signed by Ganesh Carreon MD 09/04/2018 03:36 P
== END ==
LOC: M RAD 16:46
PROVIDERS: ATTEND Obstetrics & Gynecology
DX: N63.21 Unspecified lump in the left breast, upper outer quadrant (principal)

== ENCOUNTER → 2018-09-04 | Outpatient (CLI) | payer OTHER ==
[~2018-09-04] MED LIST changes: +E-Z-GAS II EFFERVESCENT PACKET (SODIUM BICARB./CITRIC ACID/SIMETHICONE) As Ordered ONE; +E-Z-HD 98% w/w 340GM SUSP BTL As Ordered ONE; +E-Z-PAQUE 96% w/w SUSP 176GM BTL As Ordered ONE
--- NOTE | 2018-09-04 14:44 | REP ---
Examination Requested: Esophagram Barium Swallow Reason For Exam/Comment: Dysphasia Esophagram: The procedure was performed FANNIE Johnson, under the direct supervision of Dr. Carreon. The images were reviewed with Dr. Carreon. A single PA chest x-ray is submitted as a truck crane operator helper film. The superior mediastinal structures are midline. The heart size is within normal limits. The lungs are clear. Liquid barium and gas producing granules were given in the erect position as well as liquid barium in the prone oblique positions in order to perform a double contrast esophagram examination. Oral and pharyngeal stages of the examination were unremarkable. Esophageal transport is efficient and there is no esophagitis, stricture, or mucosal ring noted. There is a small hiatal hernia noted. Gastroesophageal reflux was not demonstrated throughout the course of this exam. Impression: 1. Small hiatal hernia 0.5 minutes of fluoroscopy time was utilized for this procedure. Reviewed by FANNIE Harris 09/04/2018 12:21 P Electronically Signed by Ganesh Carreon MD 09/04/2018 02:36 P
== END ==
LOC: M RAD 10:21
PROVIDERS: ATTEND Family Medicine
DX: K44.9 Diaphragmatic hernia without obstruction or gangrene (principal); R47.02 Dysphasia

== ENCOUNTER → 2018-09-13 | Outpatient (CLI) | payer OTHER ==
[~2018-09-13] MED LIST changes: -E-Z-GAS II EFFERVESCENT PACKET (SODIUM BICARB./CITRIC ACID/SIMETHICONE) As Ordered ONE; -E-Z-HD 98% w/w 340GM SUSP BTL As Ordered ONE; -E-Z-PAQUE 96% w/w SUSP 176GM BTL As Ordered ONE; +PROHANCE 279.3MG/ML 15ML VIAL (A9576) As Ordered ONE
--- NOTE | 2018-09-19 15:45 | REP ---
MRI BILATERAL BREASTS WITH AND WITHOUT CONTRAST: HISTORY: Palpable lump left breast with mastodynia. Prior placement of breast implants one year ago and recent nipple piercings. Multiple sequences are obtained in the axial, coronal and sagittal planes prior to and following the intravenous administration of 15 mL ProHance. Images are evaluated in the [employer] software including pre- and post-IV gadolinium axial T1 FS images, subtraction images, color overlay and CAD images as well as MIP reconstruction images. Correlation made with ultrasound of the left breast 09/03/2018. There is moderate amount of fibroglandular tissue bilaterally. There is moderate background parenchymal enhancement. There is diffuse increased enhancement on the left. There is a band of linear enhancement in a subcutaneous location just below the left nipple measuring about 24 mm in length and about 4 mm in thickness. The findings are most compatible with an element of left mastitis. No abscess is seen. On the right, there is a nodule in the upper outer quadrant measuring 5 mm in diameter. This is hyperintense on T2 and does demonstrate enhancement with mixed pattern of primarily persistent enhancement, but some areas of washout. There is a suggestion of a small fatty notch and this may represent an intramammary lymph node or small fibroadenoma. Margins are smooth. This appears benign. No other nodule is seen in either breast. There is no axillary adenopathy. There are bilateral breast implants noted. These are intact with no evidence of rupture or leak. IMPRESSION: BI-RADS category 2 benign bilateral breast MRI. Diffuse ill-defined parenchymal enhancement on the left with a band of subcutaneous enhancement just below the left nipple measuring 24 mm in length and about 4 mm in thickness. This has an appearance most consistent with focal mastitis. No abscess collection is seen. There is a benign appearing nodule in the upper outer quadrant of the right breast measuring 5 mm in diameter which I suspect represents a small intramammary lymph node. Bilateral breast implants are intact. No other morphologic abnormality. Electronically Signed by Ganesh Carreon MD 09/24/2018 09:52 A
== END ==
LOC: M RAD 15:29
PROVIDERS: ATTEND Family Medicine
DX: N64.4 Mastodynia (principal); Z98.82 Breast implant status
CPT/HCPCS: A9576; C8908

== ENCOUNTER 2018-11-08 06:22 | Inpatient (IN) | payer OTHER ==
[~2018-11-08] VITALS: Ht 152.4 cm; Wt 78.9 kg
[2018-11-08] VITALS (8 sets, daily range): BP systolic 113–126; BP diastolic 57–72
[~2018-11-08 06:22] MED LIST changes: +BCP PO; +BENA25CA4 PO; +DEXT1TAB15 PO; +LIDOCAINE 1% MDV 20ML VIAL SQ PRN; +LR 1,000 ML IV ONE; +OMEP20CA4 PO; -PROHANCE 279.3MG/ML 15ML VIAL (A9576) As Ordered ONE; +SPIR100T3 PO; +ZANT150T40 PO; -ZANTTAB PO
[2018-11-08] MEDS ORDERED: CLINDAMYCIN 900 MG in APPROPRIATE DILUENT 1 EA IV ONE ×3 (07:00→18:30)
[2018-11-08] MEDS ORDERED: FLUORESCEIN 10% (100MG/ML) 5 ML VIAL As Ordered ONE (07:10)
[2018-11-08] MEDS ORDERED: BUPIVACAINE HCL 0.5% 30 ML VIAL As Ordered ONE (07:10)
[2018-11-08 07:11] LABS: HEMATOCRIT 43.1 % (36.0-47.0); HEMOGLOBIN 14.1 g/dl (12.0-15.5); MEAN CORPUSCULAR HEMOGLOBIN 31.3 pg (27.0-33.0); MEAN CORPUSCULAR HGB CONC 32.7 g/dl (32.0-36.5); MEAN CORPUSCULAR VOLUME 95.6 fl (80.0-96.0); PLATELET COUNT, AUTOMATED 286 10^3/uL (150-450); RED BLOOD COUNT 4.51 10^6/uL (4.00-5.40)
[2018-11-08 07:26] LABS: BLOOD UREA NITROGEN 18 MG/DL (7-18); CARBON DIOXIDE LEVEL 26 MEQ/L (21-32); CHLORIDE LEVEL 107 MEQ/L (98-107); CREATININE FOR GFR 0.74 MG/DL (0.55-1.30); GLOMERULAR FILTRATION RATE > 60.0 (>60); GLUCOSE, FASTING 103 MG/DL (70-100); POTASSIUM SERUM 4.3 MEQ/L (3.5-5.1); SODIUM LEVEL 140 MEQ/L (136-145)
[2018-11-08 07:31] LABS: HCG, SERUM QUALITATIVE NEGATIVE (NEGATIVE)
[2018-11-08] MEDS ORDERED: GENTAMICIN 400 MG in D5W 100 ML IV ONE (08:00)
[2018-11-08] MEDS ORDERED: METOCLOPRAMIDE INJ 10MG/2ML VIAL (J2765) As Ordered ONE (08:21)
[2018-11-08] MEDS ORDERED: PROPOFOL 200 MG/20 ML VIAL As Ordered ONE (08:21)
[2018-11-08] MEDS ORDERED: dexameTHASONE 4 MG/ML 1ML VIAL (J1100) As Ordered ONE (08:21)
[2018-11-08] MEDS ORDERED: ROCURONIUM BROMIDE 50 MG/5 ML VIAL As Ordered ONE ×2 (08:21→08:31)
[2018-11-08] MEDS ORDERED: ONDANSETRON 4MG/2ML VIAL (J2405) As Ordered ONE (08:21)
[2018-11-08] MEDS ORDERED: LIDOCAINE 2% INJ 100 MG/5 ML SDV (FOR ANES.) As Ordered ONE (08:21)
[2018-11-08] MEDS ORDERED: KETOROLAC 60 MG/2 ML VIAL (J1885) As Ordered ONE ×2 (08:21→09:15)
[2018-11-08] MEDS ORDERED: fentaNYL 250 MCG/5 ML INJECTION (J3010) As Ordered ONE (08:21)
[2018-11-08] MEDS ORDERED: MIDAZOLAM INJ 2 MG/2 ML VIAL (J2250) As Ordered ONE (08:21)
[2018-11-08] MEDS ORDERED: SUGAMMADEX SODIUM 500 MG/5 ML VIAL (BRIDION) As Ordered ONE (08:21)
[2018-11-08] MEDS ORDERED: lamoTRIgine 100MG TAB PO SCH (09:00)
[2018-11-08] MEDS ORDERED: ACETAMINOPHEN 1000MG 100ML IV BTL (OFIRMEV) (J0131 PER 10MG) As Ordered ONE (09:07)
[2018-11-08] MEDS ORDERED: DESFLURANE 240 ML INHALANT As Ordered ONE (09:20)
[2018-11-08] MEDS ORDERED: ePHEDrine SULFATE 25 MG/5 ML(5MG/ML) SYRINGE As Ordered ONE (09:37)
[2018-11-08] MEDS ORDERED: CONRAY-60 60% 50ML VIAL (Q9961) As Ordered ONE (11:02)
[2018-11-08] MEDS ORDERED: METHYLENE BLUE 0.5% (5MG/ML) 10 ML AMP (PROVAYBLUE)(Q9968 PER 1MG) As Ordered ONE (11:17)
[2018-11-08] MEDS ORDERED: fentaNYL 100 MCG/2 ML INJECTION (J3010) As Ordered ONE ×2 (11:35→12:40)
[2018-11-08] MEDS ORDERED: CLINDAMYCIN 900 MG/50 ML PREMIX BAG As Ordered ONE (11:57)
--- NOTE | 2018-11-08 12:18 | REP ---
C-ARM VIEWS DURING RETROGRADE PYELOGRAM: Three C-arm views are performed. The first image shows partial opacification of the right pelvocaliceal system. The visualized portions demonstrate no definite filling defect. The second and third images show contrast in a portion of the distal right ureter. That portion of the right ureter appears grossly unremarkable. 45 seconds of fluoroscopy time utilized. Electronically Signed by Ganesh Carreon MD 11/11/2018 01:00 P
--- NOTE | 2018-11-08 12:19 | ROOPDOC ---
[facility] Report Of Operation Report of Operation DATE OF PROCEDURE: 11/08/18 PREPROCEDURE DIAGNOSES: Evaluate for possible right ureteral injury. POSTPROCEDURE DIAGNOSES: no injury to ureter. PROCEDURE: Cystoscopy with right retrograde pyelogram. Review of pyelogram was done intraoperatively. SURGEON: Blanca Kapoor MD MARKETING PROGRAM COORDINATOR: Malick Jacinto DO ANESTHESIA: Gen. ESTIMATED BLOOD LOSS: Approximately minimal mL. COMPLICATIONS: None. REMARKS: . PROCEDURE NOTE: Patient 33-year-old female who was scheduled for hysterectomy and bilateral salpingo-oophorectomy performed by Dr. Malick Jacinto. Patient received a cystoscopy intraoperatively by Dr. Jacinto after patient and received fluorescein post hysterectomy and bilateral salpingo-oophorectomy intraoperatively. Dr. Jacinto noted drainage from the left kidney, but not the right. To assure that there was not an injury to the right ureter, Dr. Jacinto consulted urology. DESCRIPTION OF PROCEDURE: Upon entering patient was in the lithotomy position. A 21 Korean rigid cystoscope was placed in the bladder. Inspection of bladder was performed. No injuries to the bladder were noted. A 0.38 Wire was placed up the right ureteral orifice into the kidney with ease. A Pollack catheter was placed over the wire up to the kidney. Fluoroscopic guidance was used and retrograde pyelograms were done. Using fluoroscopy, the entire right ureter was inspected. There were no injuries to the right ureter noted. Pollack catheter was removed. Ureter was draining copious contrast mixed with urine. Bladder was drained, cystoscope was removed and Germain catheter was replaced. Findings were discussed with Dr. Jacinto was present room throughout the entire procedure. No follow-up with urology is needed. BLANCA KAPOOR MD Nov 08, 2018 12:19
[2018-11-08] MEDS ORDERED: MOM 30ML SUSPENSION UDC PO PRN (12:30)
[2018-11-08] MEDS ORDERED: PROMETHAZINE INJ 25 MG/ML VIAL (J2550) IV PRN (12:30)
[2018-11-08] MEDS ORDERED: PERCOCET 5MG/325MG TAB PO PRN ×4 (12:30→12:45)
[2018-11-08] MEDS: fentaNYL 100 MCG/2 ML INJECTION (J3010) IV PRN ×6 (12:40→13:23)
[2018-11-08] MEDS ORDERED: ONDANSETRON 4MG/2ML VIAL (J2405) IV PRN (12:45)
[2018-11-08] MEDS ORDERED: LR 1,000 ML IV SCH (12:45)
[2018-11-08] MEDS ORDERED: MEPERIDINE INJ 25 MG/ML VIAL (J2175) IV PRN (12:45)
[2018-11-08] MEDS ORDERED: METOCLOPRAMIDE INJ 10MG/2ML VIAL (J2765) IV PRN (12:45)
[2018-11-08] MEDS: LR 1,000 ML IV SCH (13:52)
[2018-11-08] MEDS: KETOROLAC 30 MG/ML VIAL (J1885) IV SCH ×2 (15:00→21:07)
[2018-11-08] MEDS ORDERED: SYED1TAB2 PO (15:09)
[2018-11-08] MEDS: PANTOPRAZOLE 40MG INJ (PROTONIX) (C9113) IV SCH (15:37)
[2018-11-08] MEDS: MORPHINE 4 MG/ML 1ML VIAL/SYRINGE (J2270) IV PRN ×2 (15:51→21:16)
--- NOTE | 2018-11-08 17:51 | IPNPDOC ---
Text Note Date of Service The patient was seen on 11/08/18. NOTE Patient seen this evening. Ms. Thrasher is a 33 yo female who is POD#0 s/p la paroscopic bilateral salpingectomy with plan for laparoscopic hysterectomy as well, however due to severe adhesive disease the case was converted to an open abdominal hysterectomy, cystoscopy, and then retrograde uretero pyelogram performed by urology on the right side due to concern for right ureteral compromise. Right ureteral patency was confirmed after pyelogram and there was no injury. Ms. Thrasher is overall doing well this evening. She has abdominal soreness but the pain medications are helping. She has not been ambulatory yet but she reports feeling hungry. She denies any fevers/chills, SOB, chest pain, or n/v. Vitals - VSS, afebrile, normotensive, non tachycardic General - AAXO3, laying in bed, pleasant and conversant, NAD Abdomen - Soft, nondistended, low transverse incision covered with bandage and laparoscopic port sites well approximated with dermabond glue. Extremities - SCDs in place, no edema UO - Excellent, 400ml in valenzuela bag I discussed the surgery with Ms. Thrasher and answered all of her questions. I discussed the reason for conversion to an open abdominal hysterectomy and urology's input with the retrograde pyelogram. I much appreciate Dr. Luna's assistance for confirming no injury to the urinary system. Plan to keep the valenzuela catheter in until tomorrow AM and maintain SCDs until Ms. Thrasher is fully ambulatory. Clear liquids and ambulate with assistance this evening if possible. Continue scheduled pain medications. Home medications ordered. DO JIMI Lizarraga,Micheal, I+O VS, Lisae, I+O Laboratory Tests 11/08/18 06:47 Red Blood Count 4.51, Mean Corpuscular Volume 95.6, Mean Corpuscular Hemoglobin 31.3, Mean Corpuscular Hemoglobin Concent 32.7, Red Cell Distribution Width 12.8, Calcium Level 9.0 Vital Signs Date Time Temp Pulse Resp B/P (MAP) Pulse Ox O2 Delivery O2 Flow Rate FiO2 11/08/18 15:51 97.5 87 16 120/61 98 11/08/18 13:31 2 JODY GREEN DO Nov 08, 2018 17:51
[2018-11-08] MEDS: PERCOCET 5MG/325MG TAB PO PRN (19:02)
[2018-11-08] MEDS: busPIRone 10 MG TAB PO SCH (21:06)
[2018-11-08] MEDS: FLUoxetine 20 MG CAP PO SCH (21:06)
[2018-11-09] VITALS: BP 128/72
[2018-11-09] MEDS: MORPHINE 4 MG/ML 1ML VIAL/SYRINGE (J2270) IV PRN ×2 (00:33→06:34)
[2018-11-09] MEDS: KETOROLAC 30 MG/ML VIAL (J1885) IV SCH ×4 (03:02→20:05)
[2018-11-09] MEDS: LR 1,000 ML IV SCH (03:10)
[2018-11-09 04:00] VITALS: BP 103/63
[2018-11-09 06:54] LABS: BASO % 0.1 % (0.0-1.0); EOS % 0.2 % (0.0-3.0); HEMATOCRIT 33.7 % (36.0-47.0); LYMPH # 2.2 10^3/uL (1.5-4.5); MEAN CORPUSCULAR HEMOGLOBIN 30.8 pg (27.0-33.0); MEAN CORPUSCULAR HGB CONC 33.5 g/dl (32.0-36.5); MEAN CORPUSCULAR VOLUME 91.8 fl (80.0-96.0); MONO # 0.8 10^3/uL (0.0-0.8); MONO % 8.4 % (0.0-5.0); NEUTROPHILS # 6.6 10^3/uL (1.8-7.7); PLATELET COUNT, AUTOMATED 253 10^3/uL (150-450); RED BLOOD COUNT 3.67 10^6/uL (4.00-5.40); WHITE BLOOD COUNT 9.7 10^3/uL (4.0-10.0)
[2018-11-09 06:56] LABS: HEMOGLOBIN 11.3 g/dl (12.0-15.5)
[2018-11-09 07:15] LABS: BLOOD UREA NITROGEN 11 MG/DL (7-18); CARBON DIOXIDE LEVEL 25 MEQ/L (21-32); CHLORIDE LEVEL 104 MEQ/L (98-107); CREATININE FOR GFR 0.63 MG/DL (0.55-1.30); GLOMERULAR FILTRATION RATE > 60.0 (>60); GLUCOSE, FASTING 98 MG/DL (70-100); POTASSIUM SERUM 3.9 MEQ/L (3.5-5.1); SODIUM LEVEL 138 MEQ/L (136-145)
[2018-11-09 08:00] VITALS: BP 131/74
[2018-11-09] MEDS: FLUoxetine 20 MG CAP PO SCH ×2 (08:58→20:05)
[2018-11-09] MEDS: busPIRone 10 MG TAB PO SCH ×2 (08:58→20:05)
[2018-11-09] MEDS: PANTOPRAZOLE 40MG INJ (PROTONIX) (C9113) IV SCH (09:00)
--- NOTE | 2018-11-09 10:02 | IPN ---
DATE: 11/09/2018 Postoperative day 1. This lady is a 33-year-old patient who had commenced a laparoscopic assisted vaginal hysterectomy where it was converted to an open laparotomy because of extensive adhesions of the bladder over the anterior aspect of the uterus after having four sections. On her first postoperative day she had her Germain catheter removed. She voided 100 mL of clear urine. She is drinking well, passing gas and has a good respiratory effort. Her total urinary output over the course the last 12 hours was 900 mL. Her vital signs this morning her blood pressure is 131/74, respirations are 18, pulse is 88 and temperature is 97.5. Abdomen is soft. All the incisional sites from the laparoscopy are healing well. The bandage was removed, the low transverse incision is doing well. She has four quadrant bowel sounds noted and she is passing gas and she has had a bowel movement. We are encouraging her to walk and to do her incentive spirometry. We reviewed the case with her and reiterated the fact about medullary sponge kidney on the right side, which she was well aware of before the surgery. Her admitting hemoglobin was 14.1, hematocrit 43.1 and platelets 286. Postoperative day 1 hemoglobin 11.3, hematocrit 33.7 and platelets are 253. Her white count this morning is 9.7, otherwise everything is unremarkable. Chest is clear bilaterally bases. No wheezes or rhonchi. No CVA tenderness. As mentioned, abdomen is soft. Four quadrant bowel sounds are noted. No pedal edema. No acute deep vein thrombosis (DVT), pulmonary embolism (PE), or superficial phlebitis. Plan of management is to keep her one more day. She is doing well on Percocet and ibuprofen. She has her medications dispensed for discharge. We will review her case tomorrow morning for planned discharge and follow-up in the office for a two week incision check and six week postoperative check.
[2018-11-09 12:00] VITALS: BP 118/67
[2018-11-09] MEDS: PERCOCET 5MG/325MG TAB PO PRN ×2 (13:10→19:10)
[2018-11-09 16:00] VITALS: BP 125/60
--- NOTE | 2018-11-09 16:48 | RO ---
DATE OF PROCEDURE: 11/08/2018 PREPROCEDURE DIAGNOSIS: Severe dysmenorrhea refractory to conservative treatment. POSTPROCEDURE DIAGNOSES: Severe dysmenorrhea refractory to conservative treatment, as well as severe bladder adhesive disease to the lower uterine segment. PROCEDURES: 1. Laparoscopic bilateral salpingectomy. 2. Total abdominal hysterectomy. 3. Cystoscopy. 4. Dr. Luna of urology performed retrograde pyelogram of the right ureter and kidney under fluoroscopy to confirm no injury to the ureter. SURGEON: Malick Jacinto DO DIRECTOR OF HEAD START: Arun Carr MD ANESTHESIA: General. FLUIDS: 2300 mL of lactated Ringer. URINE OUTPUT: 500 mL via Valenzuela catheter. ESTIMATED BLOOD LOSS 250 mL. COMPLICATIONS: None. ANTIBIOTICS: 900mg IV clindamycin and 400mg Gentamycin DESCRIPTION OF PROCEDURE: The risks, benefits, indications, and alternatives of the procedure were reviewed with the patient and informed consent was obtained. The patient was taken to the operating room where general anesthesia was obtained without difficulty. The patient was placed in the low lithotomy position using gel padded Mt stirrups. The patient's arms were gently tucked to the side with padding. The patient was then prepped and draped in the usual sterile fashion. A surgical time-out was then performed and the patient's identity and the planned procedures were verified with the operative team. A valenzuela catheter was placed first to drain the bladder. A sterile speculum was then inserted into the vagina and the cervix was visualized. A [employer] uterine manipulator was then placed as a means to manipulate the uterus. The sterile speculum was then removed from the vagina. Gloves were then exchanged and attention was turned to the patient's abdomen where a 5 mm skin incision was made in the inferior aspect of the umbilicus after injection of 0.25% Marcaine. 5 mm trocar and sleeve were then carefully introduced into the peritoneal cavity under direct visualization at a 90 degree angle while tenting up on the abdominal wall. Intraperitoneal placement was confirmed under direct visualization and entry pressure was noted to be less than 5 mmHg. A pneumoperitoneum was then obtained with several liters of CO2 gas. Upon entry into the peritoneal cavity, structures immediately below the incision were inspected and found to be free of injury. A survey of the abdominal organs was performed. The patient's abdomen and pelvis were notable for a normal appearing liver and gastric curve. The fallopian tubes and ovaries were normal in appearance bilaterally. The uterus was overall normal; however, there were severe bladder adhesions to the lower uterine segment. Two additional 5 mm trocars, one in the left lateral aspect of the abdominal wall and one in the right lateral aspect to the abdominal wall were then placed under direct laparoscopic visualization after injection of Marcaine. Using the LigaSure electrocautery, the left fallopian tube was then dissected away from the mesosalpinx from the fimbriated end to the isthmic portion, taking care to cauterize any vasculature in the mesosalpinx. The fallopian tube was then amputated from its connection to the uterine cornua and removed from the patient's abdomen. Attention was then turned to the patient's right fallopian tube, which in a similar fashion was grasped, ligated, and removed using LigaSure electrocautery. The right fallopian tube was then amputated and removed from the abdomen as well. The operative sites were inspected and found to be hemostatic. An attempt was made to create a bladder flap laparoscopically, though this could not safely be done due to severe adhesive disease so the decision was then made to convert to an open abdominal hysterectomy. The VCare uterine manipulator was then removed from the patient's vagina. I rescrubbed, replaced my gown, and replaced my gloves and all of our equipment was obtained and set up for abdominal hysterectomy. Attention was then turned back to the patient's abdomen. A Pfannenstiel skin incision was then made and carried down to the underlying fascia using Bovie electrocautery. The fascia was then entered sharply and extended bilaterally with Carter scissors. The underlying rectus muscles were then dissected off the fascia, both superiorly and inferiorly, using jose david clamps and carter scissors. The rectus muscles were then in the midline. The peritoneum was then identified, grasped with two hemostats and entered sharply using Metzenbaum scissors. The peritoneal incision was extended superiorly and inferiorly using Bovie electrocautery. Manual and visual examination of the pelvis was notable for a 10 week sized uterus and again severe bladder adhesions to the lower uterine segment. The bowel was then packed away from the operative field using moist lap sponges and a Mobius self containing retractor was then placed as a means for pelvic exposure. The uterus was grasped with a single toothed tenaculum and it was then elevated to the level of the incision. The round ligaments were then grasped bilaterally with Madina clamps near the uterine cornua. The round ligaments were then suture ligated with 0 Vicryl suture and transected bilaterally using the bovie electrocautery which allowed entry into the broad ligament. The anterior leaf of the broad ligament was then incised along the bladder reflection on both sides to the midline and the posterior leafs of the broad ligament were incised inferiorly. A window was then created in an avascular plane of the broad ligament, below and parallel to the IP ligament and above the ureter. The fallopian tube and uretero-ovarian ligaments were then doubly clamped as close as possible to the uterine corpus, transected and suture ligated with 0 Vicryl suture on both sides. The pedicles were inspected and found to be hemostatic. The bladder was then gently dissected off the lower uterine segment using scissors and a sponge stick until the endopelvic fascia was visualized. Extensive dissection was necessary due to extensive scarring but an adequate bladder flap was ultimately created. The uterine arteries were then identified laterally along the lateral aspects of the uterus below the isthmus and they were skeletonized. The uterine artery was then double clamped, transected, and suture ligated on both sides. Hemostasis was assured throughout this process. The cardinal ligaments were then clamped, transected and suture ligated bilaterally. Finally, the uterosacral ligaments were then clamped, transected, and suture ligated bilaterally. Hemostasis was assured throughout. Curved clamps were then placed along the vagina just inferior to the cervix, and the cervix and uterus were then amputated using Dot scissors. The uterus and cervix were then handed off the field. The anterior and posterior vaginal cuff edges were then grasped with Jose David clamps. The vaginal cuff angles were closed and transfixed to the ipsilateral uterosacral and cardinal ligaments. The remainder of the cuff was then closed with 0 Vicryl suture in a running locked fashion with care given to incorporate the anterior pubocervical fascia and the posterior rectovaginal fascia. There was some oozing bleeding at the anterior portion of the vaginal cuff and this was controlled with several figure of eight sutures with 3-0 Vicryl. The abdomen was then copiously irrigated with warm saline. All pedicles were noted to be hemostatic. Maynor was then applied to the vaginal cuff and the pedicles from the hysterectomy. All packing was then removed from the abdomen and the Mobius self containing retractor was then removed from the patient's abdomen as well. The patient's abdomen was then covered with a blue towel and attention was then turned back to the patient's vagina for cystoscopy. The patient's Valenzuela catheter was removed and a cystoscope was advanced into the bladder and the bladder was distended with warm saline. Fluorescein had been given previously. Inspection of the bladder, throughout the dome and all aspects of the bladder revealed no sutures, lesions, defects, or abnormalities. The ureteral outlets were identified on both sides. Brisk efflux of Fluorescein stained urine was seen from the left ureteral orifice. Inspection of the right ureteral orifice for 20 minutes did not reveal any efflux of urine. At this time, the decision was made to consult urology to inspect the integrity of the right ureter. The cystoscope was then removed and the case was then turned over to Dr. Luna of urology, who graciously came for an intra op consultation. See his operative report for details, but in brief, Dr. Luna performed a cystoscopy and identified the right ureteral orifice in the bladder. A stent was then placed through the ureter, which stented easily to the level of the kidney. Fluoroscopy was then performed and a retrograde pyelogram was done, which confirmed no injury to the right ureter and no other abnormalities other than a medullary sponge kidney on the right side. Once the integrity of the ureter was confirmed, Dr. Luna took his leave and the case was turned back over to myself. The patient's Valenzuela catheter was then replaced. Gloves and gown were then again exchanged and attention was then turned back to the patient's abdomen. At this point, the peritoneum was then closed with 3-0 Vicryl suture in a running fashion. The rectus muscles were then loosely reapproximated using 3-0 Vicryl suture in an interrupted fashion. The fascia was then closed with 0 Vicryl suture in a running fashion. The subcutaneous tissue was then closed with 3-0 Vicryl suture in a subcutaneous interrupted fashion. The skin was then closed with 4-0 Monocryl in a running fashion. A manual examination was then performed and the vagina demonstrated excellent suspension and elevation. A vaginal sweep was performed, which confirmed no retained foreign objects remained in the vagina. Steri-Strips and a pressure dressing were then applied to the surgical incision. At the completion of the case, sponge/instrument/needle counts were correct times two. The patient was taken to the postanesthesia care unit (PACU) in stable condition. JOSE CRUZ
[2018-11-09 20:00] VITALS: BP 111/68
[2018-11-09] MEDS ORDERED: ATORVASTATIN 20 MG TAB PO SCH (23:30)
[2018-11-10] VITALS: BP 100/55
[2018-11-10] MEDS: KETOROLAC 30 MG/ML VIAL (J1885) IV SCH ×2 (02:08→08:38)
[2018-11-10] MEDS: PERCOCET 5MG/325MG TAB PO PRN (02:14)
[2018-11-10 04:00] VITALS: BP 109/59
[2018-11-10] MEDS ORDERED: PERCOCET PO ×2 (07:25)
[2018-11-10] MEDS ORDERED: MOM30SS2 PO (07:25)
[2018-11-10 08:00] VITALS: BP 110/57
[2018-11-10] MEDS: PANTOPRAZOLE 40MG INJ (PROTONIX) (C9113) IV SCH (08:37)
[2018-11-10] MEDS: busPIRone 10 MG TAB PO SCH (08:38)
[2018-11-10] MEDS: FLUoxetine 20 MG CAP PO SCH (08:38)
--- NOTE | 2018-11-10 23:54 | DSES ---
DATE OF ADMISSION: 11/08/2018 DATE OF DISCHARGE: 11/10/2018 This lady is a 33-year-old patient who had an abdominal hysterectomy, cystoscopy and this was her second postoperative day. She is anxious to go home. On discharge today, her blood pressure is 109/59, respirations 18, pulse 76, temperature 96.9. Her discharge hemoglobin 11.3, hematocrit 32.7 and platelets 253. We discussed phlebitis, cystitis, mastitis, endometritis, cellulitis, diet, exercise pain management, pain management and wound care. She was dispensed her medications prior to discharge and has a 2-week incision check with Dr. Jacinto. The rest of the examination unremarkable. She is normocephalic, atraumatic. Neck: Full range of motion. Pupils equal and reactive to light. Distal pulses symmetric. No evidence of deep vein thrombosis (DVT), pulmonary emboli (PE) or superficial phlebitis. Chest is clear bilaterally at the bases. No wheezes or rhonchi. No costovertebral angle (CVA) tenderness. Abdomen is soft. Four quadrant bowel sounds are noted. Incision is clean and dry. A bit of bruising was noted; however, the incision is intact. No rashes, lesions or pruritus. No arthralgia or myalgia. No complaint of joint pain. No complaint cough, wheeze, shortness of breath or dyspnea on exertion. No nausea, vomiting, diarrhea or constipation. No urge or frequency. She is taking MiraLax and Colace for chronic constipation. All questions were answered regarding wound care, physical activity and when she can drive her car. In summary, a patient who had a hysterectomy, uncomplicated. Discharge plan was reviewed, all questions were answered and the patient will follow up with Dr. Jacinto in two weeks' time.
== END 2018-11-10 09:05 | disposition home or self-care (01) | DRG 743 ==
LOC: M OR 06:22 → M PED 13:40
PROVIDERS: ADMIT Obstetrics & Gynecology; ATTEND Obstetrics & Gynecology
PROC: 0UTC0ZZ Resection of Cervix, Open Approach (ICD-10-PCS; 2018-11-08)
PROC: BT04ZZZ Plain Radiography of Kidneys, Ureters and Bladder (ICD-10-PCS; 2018-11-08)
PROC: 0UT90ZZ Resection of Uterus, Open Approach (ICD-10-PCS; principal; 2018-11-08 07:30)
PROC: 0UT74ZZ Resection of Bilateral Fallopian Tubes, Percutaneous Endoscopic Approach (ICD-10-PCS; 2018-11-08 07:30)
DX: N94.6 Dysmenorrhea, unspecified (principal); N73.6 Female pelvic peritoneal adhesions (postinfective); Z53.31 Laparoscopic surgical procedure converted to open procedure; Z79.899 Other long term (current) drug therapy; F41.9 Anxiety disorder, unspecified; F32.9 Major depressive disorder, single episode, unspecified

== ENCOUNTER → 2019-01-10 | Outpatient (CLI) | payer OTHER ==
[~2019-01-10] MED LIST changes: -LIDOCAINE 1% MDV 20ML VIAL SQ PRN; -LR 1,000 ML IV ONE; +MOM30SS2 PO; +PERCOCET PO; +SYED1TAB2 PO
--- NOTE | 2019-01-10 15:23 | REP ---
ULTRASOUND LEFT BREAST: Real-time sonographic evaluation of the left breast performed. Reportedly there is a palpable abnormality between the 5-o'clock and 7-o'clock positions of the left breast. Ultrasound of that area shows no discrete cystic or solid nodule. IMPRESSION: ACR 2 benign. No discrete cystic or solid nodule at the site of the palpable lump at approximately 6-o'clock of left breast. A negative ultrasound should not deter biopsy if there is a clinically suspicious palpable mass present. Clinical correlation and followup is recommended. Electronically Signed by Ganesh Carreon MD 01/10/2019 04:44 P
== END ==
LOC: M RAD 13:54
PROVIDERS: ATTEND Obstetrics & Gynecology
DX: N63.20 Unspecified lump in the left breast, unspecified quadrant (principal)

== ENCOUNTER 2019-02-25 16:50 | Emergency (ER) | payer OTHER ==
[~2019-02-25] VITALS: Ht 152.4 cm; Wt 77.7 kg
[2019-02-25] MEDS ORDERED: BENA25CA4 PO (18:15)
--- NOTE | 2019-02-25 18:17 | REPVR ---
PROCEDURE INFORMATION: Exam: CT Abdomen And Pelvis Without Contrast Exam date and time: 02/25/2019 5:47 PM Clinical history: 33 years old, female; Abdominal pain; Additional info: L flank pain, R/O stone TECHNIQUE: Imaging protocol: Computed tomography of the abdomen and pelvis without contrast. Axial, coronal and sagittal reformatted images were created and reviewed. Radiation optimization: All CT scans at this facility use at least one of these dose optimization techniques: automated exposure control; mA and/or kV adjustment per patient size (includes targeted exams where dose is matched to clinical indication); or iterative reconstruction. COMPARISON: LIVER US 03/30/2017 3:16 PM FINDINGS: Mediastinum: Small hiatal hernia. Liver: Unremarkable. Gallbladder and bile ducts: Status post cholecystectomy. No biliary ductal dilatation. Pancreas: Unremarkable. Spleen: Unremarkable. Adrenals: Unremarkable. Kidneys and ureters: No mass. No radiodense calculi. No hydronephrosis. Stomach and bowel: No bowel wall thickening. No obstruction. No pneumatosis. Appendix: Normal. Intraperitoneal space: No free fluid. No organized fluid collection. No free air. Vasculature: Unremarkable. No aneurysm. Lymph nodes: No pathologically enlarged lymph nodes. Bladder: Mild circumferential urinary bladder wall thickening, likely secondary to underdistention. Reproductive: Status post hysterectomy. 5.6 x 4.6 cm left adnexal cystic lesion. Bones/joints: No acute osseous abnormality. Soft tissues: Breast implants in place. Small, fat-containing umbilical hernia. IMPRESSION: 1. Limited noncontrast examination. 2. 5.6 x 4.6 cm left adnexal cystic lesion. If clinically indicated, pelvic ultrasound may be obtained for further evaluation. 3. Additional findings, as above. Electronically signed by: Terrence Estes On 02/25/2019 18:17:13 PM
[2019-02-25 18:52] LABS: BASO % 0.4 % (0.0-1.0); EOS # 0.1 10^3/uL (0.0-0.5); EOS % 1.1 % (0.0-3.0); HEMATOCRIT 42.9 % (36.0-47.0); LYMPH # 2.2 10^3/uL (1.5-5.0); LYMPH % 23.3 % (24.0-44.0); MEAN CORPUSCULAR HGB CONC 32.6 g/dl (32.0-36.5); MEAN CORPUSCULAR VOLUME 91.9 fl (80.0-96.0); MONO # 0.5 10^3/uL (0.0-0.8); MONO % 4.8 % (0.0-5.0); NEUTROPHILS # 6.7 10^3/uL (1.5-8.5); NEUTROPHILS % 70.2 % (36.0-66.0); PLATELET COUNT, AUTOMATED 248 10^3/uL (150-450); RED BLOOD COUNT 4.67 10^6/uL (4.00-5.40); WHITE BLOOD COUNT 9.5 10^3/uL (4.0-10.0)
[2019-02-25 19:26] LABS: ALBUMIN 4.1 GM/DL (3.2-5.2); ALT/SGPT 23 U/L (12-78); BILIRUBIN,DIRECT < 0.1 MG/DL (0.0-0.2); BILIRUBIN,TOTAL 0.3 MG/DL (0.2-1.0); BLOOD UREA NITROGEN 15 MG/DL (7-18); CALCIUM LEVEL 9.3 MG/DL (8.5-10.1); CARBON DIOXIDE LEVEL 25 MEQ/L (21-32); CHLORIDE LEVEL 108 MEQ/L (98-107); CREATININE FOR GFR 0.54 MG/DL (0.55-1.30); GLOMERULAR FILTRATION RATE > 60.0 (>60); GLUCOSE, FASTING 82 MG/DL (70-100); LIPASE 93 U/L (73-393); POTASSIUM SERUM 4.3 MEQ/L (3.5-5.1); SODIUM LEVEL 138 MEQ/L (136-145); TOTAL PROTEIN 7.7 GM/DL (6.4-8.2)
[2019-02-25] MEDS ORDERED: IBUPROFEN 800 MG TAB PO ONE (20:00)
--- NOTE | 2019-02-25 20:27 | REPVR ---
PROCEDURE INFORMATION: Exam: US Pelvis Complete, Transabdominal and US Duplex Artery and Vein, Ovaries, Complete Exam date and time: 02/25/2019 7:47 PM Clinical history: 33 years old, female; Pain and abnormal findings; Abnormal imaging test; Pelvic pain; Prior surgery; Surgery date: 6+ months; Surgery type: Hysterectomy; Additional info: L adnexal cyst, R/O torsion TECHNIQUE: Imaging protocol: Real-time transabdominal pelvic ultrasound with image documentation. Real-time duplex ultrasound scan of the arterial and venous flow of the ovaries with B-mode, color Doppler flow and spectral waveform analysis. Complete Pelvis, Complete Duplex. COMPARISON: CT ABD PELVIS W/O CONTRAST 02/25/2019 5:40 PM FINDINGS: Uterus/cervix: Surgically absent. Right ovary: 2.4 x 2.7 x 2.5 cm. No mass. Normal arterial and venous blood flow. Left ovary: 5.8 x 5.8 x 5.6 cm. 4 x 4.6 x 4.4 cm simple cyst. No solid mass. Normal arterial and venous blood flow. Free fluid: None. Bladder: Normal. IMPRESSION: 4 x 4.6 x 4.4 cm simple left ovarian cyst. No torsion. Electronically signed by: Terrence Estes On 02/25/2019 20:27:11 PM
[2019-02-25 20:55] VITALS: BP 110/69
--- NOTE | 2019-02-26 16:19 | ED PDOC ---
Post-Departure Follow-Up ft halie plummer faxed formal report of ct abd/p for fu Teri Castle MD Feb 26, 2019 16:19
== END 2019-02-25 21:45 | disposition home or self-care (01) ==
LOC: M ED 16:50
DX: N83.202 Unspecified ovarian cyst, left side (principal); E11.9 Type 2 diabetes mellitus without complications; K21.9 Gastro-esophageal reflux disease without esophagitis; F41.9 Anxiety disorder, unspecified; F32.9 Major depressive disorder, single episode, unspecified; Z87.42 Personal history of other diseases of the female genital tract; Z87.442 Personal history of urinary calculi; Z87.19 Personal history of other diseases of the digestive system; Z88.0 Allergy status to penicillin; Z88.1 Allergy status to other antibiotic agents; Z88.8 Allergy status to other drugs, medicaments and biological substances; Z79.899 Other long term (current) drug therapy

== ENCOUNTER 2019-05-21 18:36 | Emergency (ER) | payer OTHER ==
[~2019-05-21] VITALS: Ht 152.4 cm; Wt 78.8 kg
[~2019-05-21 18:36] MED LIST changes: +OMEP1CAP73 PO; -OMEP20CA4 PO
[2019-05-21 18:37] VITALS: BP 108/64
[2019-05-21] MEDS ORDERED: PRAZ1CAP PO (18:45)
== END 2019-05-21 19:32 | disposition left against medical advice (07) ==
LOC: M ED 18:36
DX: Z53.21 Procedure and treatment not carried out due to patient leaving prior to being seen by health care provider (principal)

== ENCOUNTER 2019-08-25 12:12 | Emergency (ER) | payer OTHER ==
[~2019-08-25] VITALS: Ht 152.4 cm; Wt 80.6 kg
[~2019-08-25 12:12] MED LIST changes: -FLUO20CA19 PO; +FLUO20CA22 PO; +PRAZ1CAP PO
[2019-08-25] MEDS ORDERED: NS 1,000 ML IV ONE (12:30)
[2019-08-25] MEDS ORDERED: ONDANSETRON 4MG/2ML VIAL IV ONE (12:30)
[2019-08-25 12:49] LABS: BASO % 0.2 % (0.0-1.0); EOS # 0.1 10^3/uL (0.0-0.5); EOS % 1.1 % (0.0-3.0); HEMATOCRIT 40.4 % (36.0-47.0); HEMOGLOBIN 13.4 g/dl (12.0-15.5); LYMPH # 2.1 10^3/uL (1.5-5.0); LYMPH % 21.5 % (24.0-44.0); MEAN CORPUSCULAR HGB CONC 33.2 g/dl (32.0-36.5); MEAN CORPUSCULAR VOLUME 90.6 fl (80.0-96.0); MONO # 0.5 10^3/uL (0.0-0.8); MONO % 4.8 % (0.0-5.0); NEUTROPHILS % 71.9 % (36.0-66.0); PLATELET COUNT, AUTOMATED 270 10^3/uL (150-450); RED BLOOD COUNT 4.46 10^6/uL (4.00-5.40); WHITE BLOOD COUNT 9.7 10^3/uL (4.0-10.0)
[2019-08-25] MEDS ORDERED: VRAY3CAP PO (12:56)
[2019-08-25 13:02] LABS: INR 1.04; PROTHROMBIN TIME 13.3 SECONDS (11.8-14.0)
[2019-08-25] MEDS ORDERED: MORPHINE 2 MG/ML 1ML VIAL (J2270) IV ONE (13:15)
[2019-08-25 13:20] LABS: ALBUMIN 3.9 GM/DL (3.2-5.2); ALT/SGPT 33 U/L (12-78); BILIRUBIN,DIRECT < 0.1 MG/DL (0.0-0.2); BILIRUBIN,TOTAL 0.4 MG/DL (0.2-1.0); BLOOD UREA NITROGEN 12 MG/DL (7-18); CALCIUM LEVEL 8.8 MG/DL (8.5-10.1); CARBON DIOXIDE LEVEL 24 MEQ/L (21-32); CHLORIDE LEVEL 103 MEQ/L (98-107); CREATININE FOR GFR 0.67 MG/DL (0.55-1.30); GLOMERULAR FILTRATION RATE > 60.0 (>60); GLUCOSE, FASTING 119 MG/DL (70-100); LIPASE 95 U/L (73-393); POTASSIUM SERUM 3.7 MEQ/L (3.5-5.1); SODIUM LEVEL 136 MEQ/L (136-145); TOTAL PROTEIN 7.2 GM/DL (6.4-8.2)
[2019-08-25 14:14] VITALS: BP 116/60
--- NOTE | 2019-08-25 17:47 | REP ---
CT ABDOMEN AND PELVIS WITHOUT IV CONTRAST: CT abdomen/pelvis performed without IV contrast. Sagittal and coronal reconstruction images are performed. Comparison made with prior study of 02/25/2019. The visualized lung bases demonstrate no infiltrate. The liver is grossly unremarkable. The patient has had a prior cholecystectomy. The spleen is normal in size. The adrenal glands are normal. The pancreas and kidneys are grossly unremarkable. There is no evidence of renal, ureteral, or bladder calculus. There is no evidence of hydroureteronephrosis. Bladder is not well distended and not well evaluated. There is no abdominal aortic aneurysm. There is no adenopathy. There is no free air or free fluid. There is no bowel wall thickening. The appendix is normal. Left adnexal cystic structure is again seen, unchanged in size measuring about 5.7 x 4.7 cm. No other gross pelvic abnormality is seen. IMPRESSION: No evidence of appendicitis, free air or free fluid. No bowel wall thickening. Left adnexal cyst is unchanged since 02/25/2019 measuring 5.7 x 4.7 cm. Electronically Signed by Ganesh Carreon MD 08/26/2019 10:23 A
== END 2019-08-25 14:15 | disposition home or self-care (01) ==
LOC: M ED 12:12
DX: R10.31 Right lower quadrant pain (principal); K21.9 Gastro-esophageal reflux disease without esophagitis; Z88.0 Allergy status to penicillin; Z88.1 Allergy status to other antibiotic agents; Z88.8 Allergy status to other drugs, medicaments and biological substances; Z79.899 Other long term (current) drug therapy
CPT/HCPCS: 74176; 80048; 80076; 81001; 83690; 85025; 85610; 96361; 96374; 96375; 99284; J2270; J2405

== ENCOUNTER 2019-11-07 15:22 | Emergency (ER) | payer OTHER ==
[~2019-11-07] VITALS: Ht 162.6 cm; Wt 81.8 kg
[~2019-11-07 15:22] MED LIST changes: -ASPI81TA85 PO; +ASPI81TA86 PO; +VRAY3CAP PO
[2019-11-07 16:33] LABS: BASO % 0.4 % (0.0-1.0); EOS # 0.1 10^3/uL (0.0-0.5); EOS % 1.3 % (0.0-3.0); HEMATOCRIT 40.6 % (36.0-47.0); HEMOGLOBIN 13.2 g/dl (12.0-15.5); LYMPH % 29.2 % (24.0-44.0); MEAN CORPUSCULAR HEMOGLOBIN 30.6 pg (27.0-33.0); MEAN CORPUSCULAR HGB CONC 32.5 g/dl (32.0-36.5); MONO # 0.4 10^3/uL (0.0-0.8); MONO % 6.4 % (0.0-5.0); NEUTROPHILS # 4.3 10^3/uL (1.5-8.5); NEUTROPHILS % 62.1 % (36.0-66.0); PLATELET COUNT, AUTOMATED 272 10^3/uL (150-450); RED BLOOD COUNT 4.32 10^6/uL (4.00-5.40); WHITE BLOOD COUNT 6.9 10^3/uL (4.0-10.0)
[2019-11-07] MEDS ORDERED: NS 1,000 ML IV ONE (16:45)
[2019-11-07 16:48] LABS: PROTHROMBIN TIME 12.9 SECONDS (11.8-14.0)
[2019-11-07 16:55] LABS: ALBUMIN 3.9 GM/DL (3.2-5.2); ALT/SGPT 30 U/L (12-78); BILIRUBIN,DIRECT < 0.1 MG/DL (0.0-0.2); BILIRUBIN,TOTAL 0.2 MG/DL (0.2-1.0); LIPASE 78 U/L (73-393); TOTAL PROTEIN 7.4 GM/DL (6.4-8.2)
[2019-11-07] MEDS ORDERED: METOCLOPRAMIDE INJ 10MG/2ML VIAL (J2765 PER 1) IV ONE (17:00)
[2019-11-07 18:15] VITALS: BP 104/59
--- NOTE | 2019-11-07 21:39 | ECGEPIP ---
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
--- NOTE | 2019-11-08 13:53 | REP ---
CHEST: Single view. There is no evidence of acute infiltrate. No pleural effusion is seen. The heart is normal in size. The mediastinal silhouette is unremarkable. The visualized osseous structures are intact. IMPRESSION: No acute pulmonary disease. Electronically Signed by Ganesh Carreon MD 11/09/2019 11:31 P
== END 2019-11-07 18:56 | disposition home or self-care (01) ==
LOC: M ED 15:22
DX: I95.9 Hypotension, unspecified (principal); Z79.899 Other long term (current) drug therapy; Z88.1 Allergy status to other antibiotic agents; Z88.0 Allergy status to penicillin; Z88.8 Allergy status to other drugs, medicaments and biological substances
CPT/HCPCS: 71045; 80047; 80076; 83690; 84484; 85025; 85610; 93005; 93041; 94760; 96361; 96374; 99285; J2765

== ENCOUNTER 2019-11-26 12:59 | Emergency (ER) | payer OTHER ==
[2019-11-26] MEDS ORDERED: ASPIRIN 81 MG CHEW TABLET As Ordered ONE (13:26)
[2020-01-04 10:12] LABS: HEMATOCRIT 41.1 % (36.0-47.0); HEMOGLOBIN 13.5 g/dl (12.0-15.5); MEAN CORPUSCULAR HGB CONC 32.8 g/dl (32.0-36.5); MEAN CORPUSCULAR VOLUME 94.3 fl (80.0-96.0); PLATELET COUNT, AUTOMATED 209 10^3/uL (150-450); RED BLOOD COUNT 4.36 10^6/uL (4.00-5.40); WHITE BLOOD COUNT 8.7 10^3/uL (4.0-10.0)
--- NOTE | 2020-01-07 18:56 | ECGEPIP ---
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
[2020-02-08 09:49] LABS: BLOOD UREA NITROGEN 14 MG/DL (7-18); CALCIUM LEVEL 8.2 MG/DL (8.5-10.1); CARBON DIOXIDE LEVEL 27 MEQ/L (21-32); CHLORIDE LEVEL 105 MEQ/L (98-107); CREATININE FOR GFR 0.65 MG/DL (0.55-1.30); GLOMERULAR FILTRATION RATE > 60.0 (>60); GLUCOSE, FASTING 95 MG/DL (70-100); POTASSIUM SERUM 3.9 MEQ/L (3.5-5.1); SODIUM LEVEL 138 MEQ/L (136-145); TROPONIN I < 0.02 NG/ML (< 0.10)
== END 2019-11-26 16:20 | disposition home or self-care (01) ==
LOC: M ED 12:59
DX: R07.89 Other chest pain (principal); R06.02 Shortness of breath; Z20.828 Contact with and (suspected) exposure to other viral communicable diseases; Z88.0 Allergy status to penicillin; Z88.8 Allergy status to other drugs, medicaments and biological substances